=== PATIENT | male | born 1960 | race Caucasian/White ===

== ENCOUNTER 2017-10-08 01:51 | Inpatient (IN) | payer SELFPAY ==
[~2017-10-08] VITALS: Ht 172.7 cm; Wt 75.4 kg
[2017-10-08] VITALS (13 sets, daily range): BP systolic 119–165; BP diastolic 59–94; PULSE 70–108; RESP 17–24; TEMP 98–100.5; O2SAT 93–98
[~2017-10-08 01:51] MED LIST: CHLO25CA PO; LORTA5 PO; MEDR4PAK PO; THIA100T PO; TRAM50TA PO
[2017-10-08] MEDS ORDERED: PANTOPRAZOLE INJ 80 MG in SODIUM CHLORIDE 0.9% INJ 100 ML IV SCH (02:50)
[2017-10-08] MEDS ORDERED: SODIUM CHLOR 0.9% 1000 ML INJ 1,000 ML IV SCH (02:50)
[2017-10-08] MEDS ORDERED: PANTOPRAZOLE INJ 80 MG in SODIUM CHLORIDE 0.9% INJ 35 ML IV ONE (02:50)
--- NOTE | 2017-10-08 02:55 | PD ---
HPI Chief Complaint: Abdominal Pain Time Seen by Provider: 02:50 Travel History International Travel<30 days: No Contact w/Intl Traveler<30days: No Traveled to known affect area: No History of Present Illness HPI 57-year-old male presents to the emergency department complaining of generalized weakness 2 weeks with vomiting blood and black tarry stools 3 days. Patient is also noted blood in his urine. Patient admits to daily alcohol use and states he did drink 2 beers today. Patient also complains of abdominal pain abdominal distention. Patient denies any chronic medical conditions and takes no prescription medications. Patient denies NSAID use. The patient rates his pain 8/10 in intensity. [facility] Past Medical History Narrative Medical Hypertension tonsillectomy tobacco use alcohol use; nursing notes reviewed Medical History: Denies Significant Hx Cardiovascular Problems: Yes (borderline htn) Diminished Hearing: Yes Hypertension: Yes (borderline) Tetanus Vaccination: Unknown Influenza Vaccination: No Past Surgical History Tonsillectomy: Yes Social History Alcohol Use: Yes (daily) Tobacco Use: Yes Substance Use: No Allergies-Medications (Allergen,Severity, Reaction): Coded Allergies: No Known Allergies (Unverified Allergy, Unknown, 10/08/17) Reported Meds & Prescriptions Reported Meds & Active Scripts Active No Active Prescriptions or Reported Medications Review of Systems Except as stated in HPI: all other systems reviewed are Neg General / Constitutional: No: Fever, Chills HENT: No: Congestion, Nosebleed, Gingival Bleeding Cardiovascular: No: Chest Pain or Discomfort Respiratory: No: Shortness of Breath Gastrointestinal: Positive: Nausea, Vomiting, Abdominal Pain, Hematemesis, Hematochezia, No: Loss of Appetite Genitourinary: No: Dysuria Musculoskeletal: No: Myalgias, Arthralgias Skin: No Rash Neurologic: No: Weakness Psychiatric: No: Anxiety Hematologic/Lymphatic: No: Lymph Node Enlargement Physical Exam Narrative GENERAL: Well-developed well-nourished disheveled ill-appearing male in no acute respiratory distress SKIN: Warm and dry. HEAD: Normocephalic. EYES: No scleral icterus. No injection or drainage. NECK: Supple, trachea midline. No JVD or lymphadenopathy. CARDIOVASCULAR: Regular rate and rhythm without murmurs, gallops, or rubs. RESPIRATORY: Breath sounds equal bilaterally. No accessory muscle use. GASTROINTESTINAL: Abdomen soft, non-tender, nondistended. Rectal exam: Normal sphincter tone black tarry stool briskly Hemoccult positive MUSCULOSKELETAL: No cyanosis, or edema. BACK: Nontender without obvious deformity. No CVA tenderness. Data Data Last Documented VS Vital Signs Date Time Temp Pulse Resp B/P (MAP) Pulse Ox O2 Delivery O2 Flow Rate FiO2 10/08/17 04:18 85 18 119/59 (79) 97 Room Air 10/08/17 02:00 98.4 Orders Orders Complete Blood Count With Diff (10/08/17 02:50) Comprehensive Metabolic Panel (10/08/17 02:50) Lipase (10/08/17 02:50) Ammonia (10/08/17 02:50) Prothrombin Time / Inr (Pt) (10/08/17 02:50) Act Partial Throm Time (Ptt) (10/08/17 02:50) Alcohol (Ethanol) (10/08/17 02:50) Urinalysis - C+S If Indicated (10/08/17 02:50) Type And Screen (10/08/17 02:50) Chest, Single Ap (10/08/17 02:50) Ecg Monitoring (10/08/17 02:50) Iv Access Insert/Monitor (10/08/17 02:50) Oximetry (10/08/17 02:50) Ondansetron Inj (Zofran Inj) (10/08/17 03:00) Sodium Chlor 0.9% 1000 Ml Inj (Ns 1000 M (10/08/17 02:50) Sodium Chloride 0.9% Flush (Ns Flush) (10/08/17 03:00) Sodium Chloride 0.9... W/Pantoprazole In (10/08/17 02:50) Sodium Chloride 0.9... W/Pantoprazole In (10/08/17 02:50) Alcohol Withdrawal Asmt-Ciwa ONCE (10/08/17 02:50) Flumazenil Inj (Romazicon Inj) (10/08/17 03:00) Lorazepam (Ativan) (10/08/17 03:00) Lorazepam Inj (Ativan Inj) (10/08/17 03:00) Lorazepam (Ativan) (10/08/17 03:00) Lorazepam Inj (Ativan Inj) (10/08/17 03:00) Lorazepam Inj (Ativan Inj) (10/08/17 03:00) Lorazepam Inj (Ativan Inj) (10/08/17 03:00) Magnesium (Mg) (10/08/17 02:50) Thiamine Inj (Thiamine Inj) (10/08/17 03:00) Lactulose Liq (Lactulose Liq) (10/08/17 04:00) Ct Abd/Pel W Iv Contrast(Rout) (10/08/17 ) Admit Order (Ed Use Only) (10/08/17 ) Manager Clinical Research / Telemetry [email or web address] (10/08/17 04:15) Diet Npo (10/08/17 Breakfast) Activity Bed Rest (10/08/17 04:15) Notify Dr: Other (10/08/17 04:15) Consult Gastroenterology (10/08/17 ) Labs Laboratory Tests Test 10/08/17 03:05 White Blood Count 4.1 TH/MM3 Red Blood Count 3.25 MIL/MM3 Hemoglobin 10.2 GM/DL Hematocrit 28.9 % Mean Corpuscular Volume 88.9 FL Mean Corpuscular Hemoglobin 31.3 PG Mean Corpuscular Hemoglobin Concent 35.3 % Red Cell Distribution Width 15.7 % Platelet Count 68 TH/MM3 Mean Platelet Volume 8.0 FL Neutrophils (%) (Auto) 69.7 % Lymphocytes (%) (Auto) 16.4 % Monocytes (%) (Auto) 12.6 % Eosinophils (%) (Auto) 0.3 % Basophils (%) (Auto) 1.0 % Neutrophils # (Auto) 2.9 TH/MM3 Lymphocytes # (Auto) 0.7 TH/MM3 Monocytes # (Auto) 0.5 TH/MM3 Eosinophils # (Auto) 0.0 TH/MM3 Basophils # (Auto) 0.0 TH/MM3 CBC Comment AUTO DIFF Differential Comment AUTO DIFF CONFIRMED Platelet Estimate LOW Platelet Morphology Comment NORMAL Prothrombin Time 13.3 SEC Prothromb Time International Ratio 1.3 RATIO Activated Partial Thromboplast Time 25.9 SEC Blood Urea Nitrogen 24 MG/DL Creatinine 0.86 MG/DL Random Glucose 106 MG/DL Total Protein 7.4 GM/DL Albumin 2.7 GM/DL Calcium Level 7.9 MG/DL Magnesium Level 1.7 MG/DL Alkaline Phosphatase 97 U/L Aspartate Amino Transf (AST/SGOT) 154 U/L Alanine Aminotransferase (ALT/SGPT) 90 U/L Total Bilirubin 1.3 MG/DL Sodium Level 138 MEQ/L Potassium Level 4.4 MEQ/L Chloride Level 102 MEQ/L Carbon Dioxide Level 25.9 MEQ/L Anion Gap 10 MEQ/L Estimat Glomerular Filtration Rate 91 ML/MIN Ammonia 67 MCMOL/L Lipase 402 U/L Ethyl Alcohol Level 26 MG/DL MDM Medical Decision Making Medical Screen Exam Complete: Yes Emergency Medical Condition: Yes Medical Record Reviewed: Yes Interpretation(s) CT abd/pel: CONCLUSION: 1. No acute finding is identified to explain the abdominal pain or other clinical symptoms. 2. Hepatomegaly with possible steatosis and cirrhosis. 3. Moderate atherosclerotic disease. Papito Elizalde MD on October 08, 2017 at 4:56 Board Certified Radiologist. This report was verified electronically. Last Impressions Chest X-Ray 10/08/17 0250 Signed Impressions: Service Date/Time: October 03:00 - CONCLUSION: No acute cardiopulmonary abnormality is identified. Papito Elizalde MD CBC & BMP Diagram 10/08/17 03:05 Total Protein 7.4, Albumin 2.7 L, Calcium Level 7.9 L, Magnesium Level 1.7, Alkaline Phosphatase 97, Aspartate Amino Transf (AST/SGOT) 154 H, Alanine Aminotransferase (ALT/SGPT) 90 H, Total Bilirubin 1.3 H Vital Signs Date Time Temp Pulse Resp B/P (MAP) Pulse Ox O2 Delivery O2 Flow Rate FiO2 10/08/17 02:53 95 Room Air 10/08/17 02:00 98.4 89 18 143/71 (95) 96 Differential Diagnosis GI bleed, anemia, alcohol abuse, alcohol gastritis, peptic ulcer disease, esophageal varices, electrolyte disturbance, sepsis, arrhythmia, pancreatitis Narrative Course Patient placed on cardiac surgeon IV access obtained specimens collected and sent for resulting patient administered Protonix bolus and infusion HemaPrompt Point of Care Internal Pos. & Neg. Controls: Passed Fecal Specimen Occult Blood: Positive Physician Communication Physician Communication discussed with Dr Mir; discussed with Dr Burr GI Diagnosis Primary Impression: GI bleed Additional Impressions: Alcohol use Anemia Admitting Information Admitting Physician Requests: Admit Scripts No Active Prescriptions or Reported Meds Shell Cardenas MD Oct 08, 2017 02:55
[2017-10-08] MEDS ORDERED: LORazepam 1 MG TAB PO PRN ×2 (03:00→04:45)
[2017-10-08] MEDS ORDERED: THIAMINE INJ 100 MG in SODIUM CHLORIDE 0.9% INJ 100 ML IV ONE (03:00)
[2017-10-08] MEDS ORDERED: FLUMAZENIL 0.5 MG/5 ML VIAL IV PUSH PRN ×2 (03:00→04:45)
[2017-10-08] MEDS ORDERED: ONDANSETRON HCL 4 MG/2 ML VIAL IVP ONE (03:00)
[2017-10-08] MEDS ORDERED: SODIUM CHLORIDE 0.9% FLUSH 10 ML FLUSH IVF PRN (03:00)
[2017-10-08] MEDS ORDERED: LORazepam 2 MG/ML VIAL IV PUSH PRN ×7 (03:00→04:45)
[2017-10-08] MEDS ORDERED: LORazepam 2 MG TAB PO PRN ×2 (03:00→04:45)
[2017-10-08 03:22] LABS: AUTOMATED NEUTROPHIL # 2.9 TH/MM3 (1.8-7.7); EOSINOPHIL % 0.3 % (0.0-4.0); HEMATOCRIT 28.9 % (39.0-51.0); HEMOGLOBIN 10.2 GM/DL (13.0-17.0); LYMPH % 16.4 % (9.0-44.0); LYMPHOCYTE # 0.7 TH/MM3 (1.0-4.8); MEAN CELL VOLUME 88.9 FL (80.0-100.0); MEAN CORPUSCULAR HEMOGLOBIN 31.3 PG (27.0-34.0); MEAN CORPUSCULAR HGB CONC 35.3 % (32.0-36.0); MONO % 12.6 % (0.0-8.0); MONOCYTE # 0.5 TH/MM3 (0-0.9); NEUT % 69.7 % (16.0-70.0); PLATELET COUNT 68 TH/MM3 (150-450); RED BLOOD COUNT 3.25 MIL/MM3 (4.50-5.90); RED CELL DISTRIBUTION WIDTH 15.7 % (11.6-17.2); WHITE BLOOD COUNT 4.1 TH/MM3 (4.0-11.0)
--- NOTE | 2017-10-08 03:26 | RADRPT ---
EXAM DATE/TIME: 10/08/2017 03:00 [facility] COMPARISON: No previous studies available for comparison. INDICATIONS : Short of breath. MEDICAL HISTORY : None. SURGICAL HISTORY : None. ENCOUNTER: Initial ACUITY: 1 day PAIN SCORE: 0/10 LOCATION: Bilateral chest FINDINGS: Portable AP view of the chest demonstrates a normal-sized cardiac silhouette. No effusion, consolidat ion, or pneumothorax is visualized. The bones and soft tissues demonstrate no acute abnormality. Ther e are degenerative changes of the lumbar spine and at the glenohumeral joints. CONCLUSION: No acute cardiopulmonary abnormality is identified. Papito Elizalde MD on October 08, 2017 at 3:24 Board Certified Radiologist. This report was verified electronically.
[2017-10-08 03:29] LABS: INTERNATIONAL NORMALIZED RATIO 1.3 RATIO; PROTHROMBIN TIME - PATIENT 13.3 SEC (9.8-11.6)
[2017-10-08 03:39] LABS: ALBUMIN 2.7 GM/DL (3.4-5.0); AST (GOT) 154 U/L (15-37); BICARBONATE 25.9 MEQ/L (21.0-32.0); BLOOD UREA NITROGEN 24 MG/DL (7-18); CALCIUM 7.9 MG/DL (8.5-10.1); CHLORIDE 102 MEQ/L (98-107); CREATININE 0.86 MG/DL (0.60-1.30); GLOMERULAR FILTRATION RATE 91 ML/MIN (>89); GLUCOSE,RANDOM 106 MG/DL (74-106); MAGNESIUM 1.7 MG/DL (1.5-2.5); SODIUM (NA) 138 MEQ/L (136-145)
[2017-10-08 03:43] LABS: ALKALINE PHOSPHATASE 97 U/L (45-117); ALT (GPT) 90 U/L (12-78); TOTAL BILIRUBIN ADULT 1.3 MG/DL (0.2-1.0); TOTAL PROTEIN 7.4 GM/DL (6.4-8.2)
[2017-10-08] MEDS ORDERED: LACTULOSE SYRUP 20 GM/30 ML CUP PO ONE (04:00)
[2017-10-08] MEDS ORDERED: SODIUM CHLOR 0.9% 250 ML INJ 250 ML IV ONE (04:45)
[2017-10-08] MEDS ORDERED: SODIUM CHLORIDE 0.9% FLUSH 10 ML FLUSH IV FLUSH PRN (04:45)
[2017-10-08] MEDS ORDERED: IOHEXOL 350 MG/ML 10 ML VIAL (for RAD DIAG) IVCONTRAST ONE (04:48)
--- NOTE | 2017-10-08 05:03 | RADRPT ---
EXAM DATE/TIME: 10/08/2017 04:48 [facility] COMPARISON: No previous studies available for comparison. INDICATIONS : Abdomen pain; blood in stool, hematuria, hemoptysis. IV CONTRAST: 100 cc Omnipaque 350 (iohexol) IV ORAL CONTRAST: No oral contrast ingested. RADIATION DOSE: 6.57 CTDIvol (mGy) MEDICAL HISTORY : Hypertension. SURGICAL HISTORY : None. ENCOUNTER: Initial ACUITY: 1 day PAIN SCALE: 5/10 LOCATION: Bilateral abdomen TECHNIQUE: Volumetric scanning of the abdomen and pelvis was performed. Using automated exposure control and ad justment of the mA and/or kV according to patient size, radiation dose was kept as low as reasonably achievable to obtain optimal diagnostic quality images. DICOM format image data is available electro nically for review and comparison. FINDINGS: LOWER LUNGS: The visualized lower lungs are clear. LIVER: The liver measures 20.1 cm in length and demonstrates mild decrease density with possible nodular con tour. Portal vein is patent. No focal enhancing lesion is seen. There is no dilation of the biliary tree. No calcified gallstones. SPLEEN: Normal size without lesion. PANCREAS: Within normal limits. KIDNEYS: Normal in size and shape. There is no mass, stone or hydronephrosis. ADRENAL GLANDS: Within normal limits. VASCULAR: There is no aortic aneurysm. There is moderate atherosclerotic disease. BOWEL/MESENTERY: The stomach, small bowel, and colon demonstrate no acute abnormality. There is no free intraperitone al air or fluid. ABDOMINAL WALL: Within normal limits. RETROPERITONEUM: There is no lymphadenopathy. BLADDER: No wall thickening or mass. REPRODUCTIVE: Within normal limits. INGUINAL: There is no lymphadenopathy or hernia. MUSCULOSKELETAL: There are degenerative changes of the lumbar spine. No acute osseous abnormality is seen. CONCLUSION: 1. No acute finding is identified to explain the abdominal pain or other clinical symptoms. 2. Hepatomegaly with possible steatosis and cirrhosis. 3. Moderate atherosclerotic disease. Papito Elizalde MD on October 08, 2017 at 4:56 Board Certified Radiologist. This report was verified electronically.
[2017-10-08] MEDS: SODIUM CHLOR 0.9% 1000 ML INJ 1,000 ML IV SCH ×2 (05:22→14:45)
[2017-10-08 05:33] LABS: HEMOGLOBIN 9.3 GM/DL (13.0-17.0)
--- NOTE | 2017-10-08 05:37 | HHI.HP ---
[facility] No Primary Care Physician Admission Diagnosis upper GI bleed w/anemia; alcohol hepatitis/gastritis Diagnoses: Travel History International Travel<30 Days: No Contact w/Intl Traveler <30 Da: No Traveled to Known Affected Are: No History of Present Illness 57-year-old male with a past medical history significant for alcohol abuse presents to the emergency department for evaluation of bloody emesis, bloody stools and weakness. The patient reports this has been going on for several days. He drinks daily and states that he had 2 beers earlier today. He is lethargic on exam but rouses to voice. Denies CP/SOB. No nausea/vomiting/ diarrhea. No abdominal pain. Review of Systems Except as stated in HPI: all other systems reviewed are Neg Past Family Social History Past Medical History History of alcohol abuse Past Surgical History None Reported Medications Reported Meds & Active Scripts Active No Active Prescriptions or Reported Medications Allergies: Coded Allergies: No Known Allergies (Unverified Allergy, Unknown, 10/08/17) Family History Both parents with both diabetes mellitus and coronary artery disease Social History Notes proximally one pack per day. Drinks approximately 4 - 16 ounce cans of beer daily. Denies illicit drugs. Physical Exam Vital Signs Vital Signs Date Time Temp Pulse Resp B/P (MAP) Pulse Ox O2 Delivery O2 Flow Rate FiO2 10/08/17 04:18 85 18 119/59 (79) 97 Room Air 10/08/17 02:53 95 Room Air 10/08/17 02:00 98.4 89 18 143/71 (95) 96 Physical Exam GENERAL: Disheveled, male lying in bed SKIN: No rashes, ecchymoses or lesions. Cool and dry. HEAD: Atraumatic. Normocephalic. No temporal or scalp tenderness. EYES: Pupils equal round and reactive. Extraocular motions intact. No scleral icterus. No injection or drainage. ENT: Nose without bleeding, purulent drainage or septal hematoma. Throat without erythema, tonsillar hypertrophy or exudate. Uvula midline. Airway patent. NECK: Trachea midline. No JVD or lymphadenopathy. Supple, nontender, no meningeal signs. CARDIOVASCULAR: Regular rate and rhythm without murmurs, gallops, or rubs. RESPIRATORY: Clear to auscultation. Breath sounds equal bilaterally. No wheezes , rales, or rhonchi. GASTROINTESTINAL: Abdomen soft, non-tender, nondistended. No hepato-splenomegaly , or palpable masses. No guarding. MUSCULOSKELETAL: Extremities without clubbing, cyanosis, or edema. No joint tenderness, effusion, or edema noted. No calf tenderness. NEUROLOGICAL: Lethargic. Arouses to voice. Laboratory Laboratory Tests Test 10/08/17 03:05 White Blood Count 4.1 Red Blood Count 3.25 Hemoglobin 10.2 Hematocrit 28.9 Mean Corpuscular Volume 88.9 Mean Corpuscular Hemoglobin 31.3 Mean Corpuscular Hemoglobin Concent 35.3 Red Cell Distribution Width 15.7 Platelet Count 68 Mean Platelet Volume 8.0 Neutrophils (%) (Auto) 69.7 Lymphocytes (%) (Auto) 16.4 Monocytes (%) (Auto) 12.6 Eosinophils (%) (Auto) 0.3 Basophils (%) (Auto) 1.0 Neutrophils # (Auto) 2.9 Lymphocytes # (Auto) 0.7 Monocytes # (Auto) 0.5 Eosinophils # (Auto) 0.0 Basophils # (Auto) 0.0 CBC Comment AUTO DIFF Differential Comment AUTO DIFF CONFIRMED Platelet Estimate LOW Platelet Morphology Comment NORMAL Prothrombin Time 13.3 Prothromb Time International Ratio 1.3 Activated Partial Thromboplast Time 25.9 Blood Urea Nitrogen 24 Creatinine 0.86 Random Glucose 106 Total Protein 7.4 Albumin 2.7 Calcium Level 7.9 Magnesium Level 1.7 Alkaline Phosphatase 97 Aspartate Amino Transf (AST/SGOT) 154 Alanine Aminotransferase (ALT/SGPT) 90 Total Bilirubin 1.3 Sodium Level 138 Potassium Level 4.4 Chloride Level 102 Carbon Dioxide Level 25.9 Anion Gap 10 Estimat Glomerular Filtration Rate 91 Ammonia 67 Lipase 402 Ethyl Alcohol Level 26 Result Diagram: 10/08/1730410/08/17304 Caprini VTE Risk Assessment Caprini VTE Risk Assessment: No/Low Risk (score <= 1) Caprini Risk Assessment Model Point Value = 1 Point Value = 2 Point Value = 3 Point Value = 5 Age 41-60 Minor surgery BMI > 25 kg/m2 Swollen legs Varicose veins or History of unexplained or recurrent spontaneous Oral contraceptives or hormone replacement Sepsis (< 1 month) Serious lung disease, including pneumonia (< 1 month) Abnormal pulmonary function Acute myocardial infarction Congestive heart failure (< 1 month) History of inflammatory bowel disease Medical patient at bed rest Age 61-74 Arthroscopic surgery Major open surgery (> 45 min) Laparoscopic surgery (> 45 min) Malignancy Confined to bed (> 72 hours) Immobilizing plaster cast Central venous access Age >= 75 History of VTE Family history of VTE Factor V Leiden Prothrombin [id number] Lupus anticoagulant Anticardiolipin antibodies Elevated serum homocysteine Heparin-induced thrombocytopenia Other congenital or acquired thrombophilia Stroke (< 1 month) Elective arthroplasty Hip, pelvis, or leg fracture Acute spinal cord injury (< 1 month) Prophylaxis Regimen Total Risk Factor Score Risk Level Prophylaxis Regimen 0-1 Low Early ambulation 2 Moderate Order ONE of the following: *Sequential Compression Device (SCD) *Heparin 5000 units SQ BID 3-4 Higher Order ONE of the following medications: *Heparin 5000 units SQ TID *Enoxaparin/Lovenox 40 mg SQ daily (WT < 150 kg, CrCl > 30 mL/min) *Enoxaparin/Lovenox 30 mg SQ daily (WT < 150 kg, CrCl > 10-29 mL/min) *Enoxaparin/Lovenox 30 mg SQ BID (WT < 150 kg, CrCl > 30 mL/min) AND/OR *Sequential Compression Device (SCD) 5 or more Highest Order ONE of the following medications: *Heparin 5000 units SQ TID (Preferred with Epidurals) *Enoxaparin/Lovenox 40 mg SQ daily (WT < 150 kg, CrCl > 30 mL/min) *Enoxaparin/Lovenox 30 mg SQ daily (WT < 150 kg, CrCl > 10-29 mL/min) *Enoxaparin/Lovenox 30 mg SQ BID (WT < 150 kg, CrCl > 30 mL/min) AND *Sequential Compression Device (SCD) Assessment and Plan Assessment and Plan Assessment/plan: 1. GI bleed Patient reports hematemesis and is Hemoccult positive with grossly black tarry stools on rectal exam Hemoglobin 10.2, baseline 14.6 Serial H&H Protonix drip Nothing by mouth Gastroenterology consulted, appreciate recommendations 2. Hyperammonemia Ammonia 67 Rifaximin 3. Alcohol abuse Thiamine/folate/multivitamins [facility] protocol Monitor for signs of withdrawal FEN NPO Electrolytes: monitor and replete prn Holding pharmacologic anticoagulation for GI bleed Physician Certification 2 Midnight Certification Type: Admission for Inpatient Services Order for Inpatient Services The services are ordered in accordance with Medicare regulations or non- Medicare payer requirements, as applicable. In the case of services not specified as inpatient-only, they are appropriately provided as inpatient services in accordance with the 2-midnight benchmark. Estimated LOS (days): 2 2 days is the estimated time the patient will need to remain in the hospital, assuming treatment plan goals are met and no additional complications. Post-Hospital Plan: Not yet determined Odalys Mir MD Oct 08, 2017 05:37
[2017-10-08] MEDS: THIAMINE INJ 100 MG in SODIUM CHLORIDE 0.9% INJ 100 ML IV SCH (05:57)
[2017-10-08] MEDS: LORazepam 2 MG/ML VIAL IV PUSH PRN ×2 (06:27→22:16)
[2017-10-08] MEDS: MULTIVITAMIN INJ 10 ML, FOLIC ACID INJ 1 MG in SODIUM CHLORID 0.9% 500 ML INJ 500 ML IV SCH (06:39)
[2017-10-08] MEDS: RIFAXIMIN 550 MG TAB PO SCH ×2 (09:00→22:15)
[2017-10-08] MEDS ORDERED: PANTOPRAZOLE SODIUM 40 MG VIAL IV PUSH SCH (09:00)
[2017-10-08] MEDS: SODIUM CHLORIDE 0.9% FLUSH 10 ML FLUSH IV FLUSH SCH ×2 (09:00→22:16)
--- NOTE | 2017-10-08 11:20 | PD.CONS ---
HPI History of Present Illness This is a 57 year old male with hx etoh abuse who presented to ER for hematemesis, blood in stool and blood in urine. Onset yesterday. Vomit was projectile. Admits epigastric pain. Admits black tarry stool as well. Denies prior hx GIB, gastric ulcers. "I'm sure my liver is pickled." Not on blood thinners. He uses 2 x pkgs Goody powder daily. ADmits drinking 4 beers nightly. Never had EGD or colonoscopy. [facility], [facility] Past Medical History History of alcohol abuse Past Surgical History none Coded Allergies: No Known Allergies (Unverified Allergy, Unknown, 10/08/17) Family History Both parents with both diabetes mellitus and coronary artery disease Social History Notes proximally one pack per day. Drinks approximately 4 - 16 ounce cans of beer daily. Denies illicit drugs. Review of Systems Constitutional: DENIES: Fever Endocrine: DENIES: Polydipsia Eyes: DENIES: Blurred vision Ears, nose, mouth, throat: DENIES: Hearing loss Respiratory: DENIES: Cough Cardiovascular: DENIES: Chest pain Gastrointestinal: COMPLAINS OF: Abdominal pain, DENIES: Black stools, Bloody stools, Nausea, Vomiting, Hematemesis Genitourinary: COMPLAINS OF: Hematuria Musculoskeletal: DENIES: Muscle aches Integumentary: DENIES: Abnormal pigmentation Hematologic/lymphatic: DENIES: Bruising Immunologic/allergic: DENIES: Eczema Neurologic: DENIES: Abnormal gait Psychiatric: DENIES: Confusion GI Exam Vitals I&O Vital Signs Date Time Temp Pulse Resp B/P (MAP) Pulse Ox O2 Delivery O2 Flow Rate FiO2 10/08/17 07:00 88 19 140/71 (94) 93 Room Air 10/08/17 06:27 98.0 78 18 135/63 (87) 98 Room Air 10/08/17 04:18 85 18 119/59 (79) 97 Room Air 10/08/17 02:53 95 Room Air 10/08/17 02:00 98.4 89 18 143/71 (95) 96 I/O 10/07/17 10/07/17 10/07/17 10/08/17 10/08/17 10/08/17 07:00 15:00 23:00 07:00 15:00 23:00 Intake Total 651 ml Output Total 200 ml Balance 451 ml Intake IV Total 651 ml Output Stool Total 200 ml # Bowel Movements 1 Imaging Last Impressions Chest X-Ray 10/08/17 0250 Signed Impressions: Service Date/Time: October 03:00 - CONCLUSION: No acute cardiopulmonary abnormality is identified. Papito Elizalde MD Abdomen/Pelvis CT 10/08/17 0000 Signed Impressions: Service Date/Time: October 04:48 - CONCLUSION: 1. No acute finding is identified to explain the abdominal pain or other clinical symptoms. 2. Hepatomegaly with possible steatosis and cirrhosis. 3. Moderate atherosclerotic disease. Papito Elizalde MD Laboratory Test 10/08/17 03:05 10/08/17 05:16 White Blood Count 4.1 TH/MM3 Red Blood Count 3.25 MIL/MM3 Hemoglobin 10.2 GM/DL 9.3 GM/DL Hematocrit 28.9 % 27.0 % Mean Corpuscular Volume 88.9 FL Mean Corpuscular Hemoglobin 31.3 PG Mean Corpuscular Hemoglobin Concent 35.3 % Red Cell Distribution Width 15.7 % Platelet Count 68 TH/MM3 Mean Platelet Volume 8.0 FL Neutrophils (%) (Auto) 69.7 % Lymphocytes (%) (Auto) 16.4 % Monocytes (%) (Auto) 12.6 % Eosinophils (%) (Auto) 0.3 % Basophils (%) (Auto) 1.0 % Neutrophils # (Auto) 2.9 TH/MM3 Lymphocytes # (Auto) 0.7 TH/MM3 Monocytes # (Auto) 0.5 TH/MM3 Eosinophils # (Auto) 0.0 TH/MM3 Basophils # (Auto) 0.0 TH/MM3 CBC Comment AUTO DIFF Differential Comment AUTO DIFF CONFIRMED Platelet Estimate LOW Platelet Morphology Comment NORMAL Prothrombin Time 13.3 SEC Prothromb Time International Ratio 1.3 RATIO Activated Partial Thromboplast Time 25.9 SEC Blood Urea Nitrogen 24 MG/DL Creatinine 0.86 MG/DL Random Glucose 106 MG/DL Total Protein 7.4 GM/DL Albumin 2.7 GM/DL Calcium Level 7.9 MG/DL Magnesium Level 1.7 MG/DL Alkaline Phosphatase 97 U/L Aspartate Amino Transf (AST/SGOT) 154 U/L Alanine Aminotransferase (ALT/SGPT) 90 U/L Total Bilirubin 1.3 MG/DL Sodium Level 138 MEQ/L Potassium Level 4.4 MEQ/L Chloride Level 102 MEQ/L Carbon Dioxide Level 25.9 MEQ/L Anion Gap 10 MEQ/L Estimat Glomerular Filtration Rate 91 ML/MIN Ammonia 67 MCMOL/L Lipase 402 U/L Ethyl Alcohol Level 26 MG/DL Physical Examination HEENT: PERRL; normocephalic; atraumatic; no jaundice. CHEST: expiratory wheezes CARDIAC: RRR ABDOMEN: Soft, nondistended, epigastric TTP; no hepatosplenomegaly; bowel sounds are present in all four quadrants. EXTREMITIES: No clubbing, cyanosis, or edema. SKIN: Normal; no rash; no jaundice. DIESEL SCOOP OPERATOR: No focal deficits; alert and oriented times three. Amrita Mauricio Oct 08, 2017 11:20
[2017-10-08 12:00] LABS: BILIRUBIN, URINE NEG (NEG); BLOOD, URINE NEG (NEG); GLUCOSE,URINE NEG (NEG); KETONE, URINE NEG (NEG); NITRITE,URINE NEG (NEG); URINE COLOR YELLOW (YELLW/STRAW); URINE LEUKOCYTE ESTERASE NEG (NEG)
[2017-10-08 12:05] LABS: HEMATOCRIT 28.2 % (39.0-51.0); HEMOGLOBIN 9.6 GM/DL (13.0-17.0)
[2017-10-08] MEDS: PANTOPRAZOLE INJ 80 MG in SODIUM CHLORIDE 0.9% INJ 100 ML IV SCH ×2 (13:31→21:00)
--- NOTE | 2017-10-08 15:08 | HHI.PR ---
Addendum to Inpatient Note Addendum Reason: Additional Documentation Additional Information Patient seen and examined GI consultation pending Keep NPO, IV PPI and Continue with current treatment Bartolome Alejandra MD Oct 08, 2017 15:08
--- NOTE | 2017-10-08 15:22 | GIPROC ---
[facility] [address] [facility]. [facility] [address], [address] EGD PROCEDURE REPORT EXAM DATE: 10/08/2017 PATIENT NAME: Papito Earl MR #: [id number] BIRTHDATE: 1960 ATTENDING: Miguel Hill MD ORDER #: [id number] COUNTY COMMISSIONER: Kristan Pendleton RN STATUS: inpatient INDICATIONS: The patient is a 57 yr old male here for an EGD due to hematemesis PROCEDURE PERFORMED: EGD w/ biopsy MEDICATIONS: None and Per Anesthesia. TOPICAL ANESTHETIC: none CONSENT: The patient understands the risks and benefits of the procedure and understands that these risks include, but are not limited to: sedation, allergic reaction, infection, perforation and/or bleeding. Alternative means of evaluation and treatment include, among others: physical exam, x-rays, and/or surgical intervention. The patient elects to proceed with this endoscopic procedure. medical equipment was checked for proper function. Hand hygiene and appropriate measures for infection prevention was taken. After the risks, benefits and alternatives of the procedure were thoroughly explained, Informed consent was verified, confirmed and timeout was successfully executed by the treatment team. The patient was anesthetized with topical anesthesia and the Pentax EG-[id number] endoscope was introduced through the mouth and advanced to the second portion of the duodenum. Retroflexion was performed and was normal The gastroscope was then slowly withdrawn and removed. ESOPHAGUS: A non-bleeding Caitlin-Ronquillo tear was found. STOMACH: There was erythematous severe gastritis in the entire examined stomach. Multiple biopsies were performed using cold forceps. Sample sent for histology. DUODENUM: A large non-bleeding non-bleeding, round, deep and clean-based ulcer was found in the duodenal bulb. ADVERSE EVENTS: There were no complications. IMPRESSIONS: 1. Caitlin-Ronquillo tear 2. There was erythematous gastritis in the entire examined stomach; multiple biopsies were performed 3. Large non-bleeding ulcer was found in the duodenal bulb 4. Retroflexion was performed and was normal RECOMMENDATIONS: 1. Await biopsy results. Biopsy results will not be ready for 7-10 days. If you don't hear from us in two weeks, call our office for biopsy results. 2. Continue PPI 3. Avoid NSAIDS PATIENT CONDITION: stable DISPOSITION: Observation REPEAT EXAM: NONE Miguel Hill MD eSigned: Miguel Hill MD 10/08/2017 3:22 PM cc: PATIENT NAME: Papito Earl MR#: [id number]
--- NOTE | 2017-10-08 23:59 | EKG ---
Date Performed: 10/08/2017 Time Performed: 14:28:00 PTAGE: 57 years EKG: Sinus rhythm NORMAL ECG PREVIOUS TRACING : 06/24/2016 11.13 Since the prior tracing, there has been no significant maravilla DOCTOR: Manuel Hudson Interpretating Date/Time 10/08/2017 23:59:02
[2017-10-09] VITALS: PULSE 80
[2017-10-09] MEDS: PANTOPRAZOLE INJ 80 MG in SODIUM CHLORIDE 0.9% INJ 100 ML IV SCH ×2 (00:17→13:08)
[2017-10-09] MEDS: SODIUM CHLOR 0.9% 1000 ML INJ 1,000 ML IV SCH ×2 (00:18→10:45)
[2017-10-09 04:00] VITALS: PULSE 82
[2017-10-09 04:12] VITALS: BP 126/76; PULSE 77; RESP 18; TEMP 98.6; O2SAT 98
[2017-10-09] MEDS: MULTIVITAMIN INJ 10 ML, FOLIC ACID INJ 1 MG in SODIUM CHLORID 0.9% 500 ML INJ 500 ML IV SCH (04:51)
[2017-10-09] MEDS: THIAMINE INJ 100 MG in SODIUM CHLORIDE 0.9% INJ 100 ML IV SCH (04:53)
[2017-10-09 07:54] LABS: AUTOMATED NEUTROPHIL # 2.2 TH/MM3 (1.8-7.7); BASOPHIL % 0.8 % (0.0-2.0); EOSINOPHIL # 0.1 TH/MM3 (0-0.4); EOSINOPHIL % 2.1 % (0.0-4.0); HEMATOCRIT 26.6 % (39.0-51.0); HEMOGLOBIN 9.2 GM/DL (13.0-17.0); LYMPH % 40.9 % (9.0-44.0); LYMPHOCYTE # 1.9 TH/MM3 (1.0-4.8); MEAN CELL VOLUME 91.9 FL (80.0-100.0); MEAN CORPUSCULAR HEMOGLOBIN 31.8 PG (27.0-34.0); MEAN CORPUSCULAR HGB CONC 34.6 % (32.0-36.0); MEAN PLATELET VOLUME 8.4 FL (7.0-11.0); MONO % 9.3 % (0.0-8.0); MONOCYTE # 0.4 TH/MM3 (0-0.9); NEUT % 46.9 % (16.0-70.0); PLATELET COUNT 53 TH/MM3 (150-450); RED BLOOD COUNT 2.89 MIL/MM3 (4.50-5.90); RED CELL DISTRIBUTION WIDTH 15.6 % (11.6-17.2); WHITE BLOOD COUNT 4.7 TH/MM3 (4.0-11.0)
[2017-10-09 08:00] LABS: ALBUMIN 2.4 GM/DL (3.4-5.0); ALT (GPT) 63 U/L (12-78); BICARBONATE 27.3 MEQ/L (21.0-32.0); BLOOD UREA NITROGEN 16 MG/DL (7-18); CALCIUM 7.6 MG/DL (8.5-10.1); CHLORIDE 105 MEQ/L (98-107); CREATININE 0.98 MG/DL (0.60-1.30); GLOMERULAR FILTRATION RATE 79 ML/MIN (>89); GLUCOSE,RANDOM 81 MG/DL (74-106); SODIUM (NA) 138 MEQ/L (136-145)
[2017-10-09 08:03] LABS: ALKALINE PHOSPHATASE 86 U/L (45-117); AST (GOT) 100 U/L (15-37); TOTAL BILIRUBIN ADULT 1.2 MG/DL (0.2-1.0); TOTAL PROTEIN 6.8 GM/DL (6.4-8.2)
[2017-10-09 08:34] VITALS: BP 144/70; PULSE 77; RESP 17; TEMP 98.7; O2SAT 98
[2017-10-09] MEDS: SODIUM CHLORIDE 0.9% FLUSH 10 ML FLUSH IV FLUSH SCH (09:00)
[2017-10-09] MEDS ORDERED: ALUMINUM/MAGNESIUM/SIMETH 30 ML CUP PO PRN (09:30)
[2017-10-09 10:52] VITALS: BP 135/68; PULSE 87; RESP 18; TEMP 98.1; O2SAT 99
[2017-10-09 12:22] VITALS: PULSE 92
[2017-10-09] MEDS: RIFAXIMIN 550 MG TAB PO SCH (13:08)
--- NOTE | 2017-10-09 13:19 | HHI.GIFU ---
Subjective Remarks Sitting up in chair alert oriented Hoping to go home Denies any further bleeding No nausea no abdominal pain, no vomiting (Pavithra Tran) Objective Vitals I&O Vital Signs Date Time Temp Pulse Resp B/P (MAP) Pulse Ox O2 Delivery O2 Flow Rate FiO2 10/09/17 10:52 98.1 87 18 135/68 (90) 99 10/09/17 08:34 98.7 77 17 144/70 (94) 98 10/09/17 08:00 Room Air 10/09/17 04:12 98.6 77 18 126/76 (93) 98 10/09/17 04:00 82 10/09/17 00:00 80 10/08/17 23:38 98.5 72 18 129/64 (85) 94 10/08/17 21:42 100.5 78 18 123/65 (84) 98 10/08/17 20:00 108 10/08/17 19:30 98 Room Air 10/08/17 18:30 99.0 70 18 154/72 (99) 96 10/08/17 17:53 10/08/17 17:30 92 18 138/80 (99) 96 Room Air 10/08/17 16:10 89 24 155/94 (114) 96 Room Air 10/08/17 15:33 97.4 88 18 156/79 (104) 97 I/O 10/08/17 10/08/17 10/08/17 10/09/17 10/09/17 10/09/17 07:00 15:00 23:00 07:00 15:00 23:00 Intake Total 651 ml 400 ml 0 ml Output Total 200 ml Balance 451 ml 400 ml 0 ml Intake Oral 0 ml IV Total 651 ml Other 400 ml Output Stool Total 200 ml # Voids 1 # Bowel Movements 1 1 Laboratory Laboratory Tests Test 10/09/17 06:25 White Blood Count 4.7 Red Blood Count 2.89 Hemoglobin 9.2 Hematocrit 26.6 Mean Corpuscular Volume 91.9 Mean Corpuscular Hemoglobin 31.8 Mean Corpuscular Hemoglobin Concent 34.6 Red Cell Distribution Width 15.6 Platelet Count 53 Mean Platelet Volume 8.4 Neutrophils (%) (Auto) 46.9 Lymphocytes (%) (Auto) 40.9 Monocytes (%) (Auto) 9.3 Eosinophils (%) (Auto) 2.1 Basophils (%) (Auto) 0.8 Neutrophils # (Auto) 2.2 Lymphocytes # (Auto) 1.9 Monocytes # (Auto) 0.4 Eosinophils # (Auto) 0.1 Basophils # (Auto) 0.0 CBC Comment AUTO DIFF Differential Comment AUTO DIFF CONFIRMED Platelet Estimate LOW Platelet Morphology Comment NORMAL Blood Urea Nitrogen 16 Creatinine 0.98 Random Glucose 81 Total Protein 6.8 Albumin 2.4 Calcium Level 7.6 Alkaline Phosphatase 86 Aspartate Amino Transf (AST/SGOT) 100 Alanine Aminotransferase (ALT/SGPT) 63 Total Bilirubin 1.2 Sodium Level 138 Potassium Level 3.9 Chloride Level 105 Carbon Dioxide Level 27.3 Anion Gap 6 Estimat Glomerular Filtration Rate 79 Imaging Last Impressions Chest X-Ray 10/08/17 0250 Signed Impressions: Service Date/Time: October 03:00 - CONCLUSION: No acute cardiopulmonary abnormality is identified. Papito Elizalde MD Abdomen/Pelvis CT 10/08/17 0000 Signed Impressions: Service Date/Time: October 04:48 - CONCLUSION: 1. No acute finding is identified to explain the abdominal pain or other clinical symptoms. 2. Hepatomegaly with possible steatosis and cirrhosis. 3. Moderate atherosclerotic disease. Papito Elizalde MD Physical Exam HEENT: Pupils round and reactive to light; normocephalic; atraumatic; NECK: Neck is supple, no pain CHEST: Chest is essentially clear no audible rhonchi CARDIAC: Regular rate and rhythm ABDOMEN: Soft, nondistended, nontender, bowel sounds are present in all four quadrants. EXTREMITIES: No edema. SKIN: Pale mild; no rash; no jaundice. SLIDE FORMING MACHINE TENDER: No focal deficits; alert and oriented times three. (Pavithra Tran) Assessment and Plan Plan Hepatomegaly with probable steatosis, cirrhosis seen on x-ray. EGD done without complications 10/08/17 Caitlin-Ronquillo tear There was erythematous gastritis in the entire examined stomach; multiple biopsies were performed Large non-bleeding ulcer was found in the duodenal bulb Retroflexion was performed and was normal Hemoglobin stable today at 9.2 Plan Await biopsy results. Biopsy results will not be ready for 7-10 days. If you don't hear from us in two weeks, call our office for biopsy results Continue PPI Avoid NSAIDS Okay to DC from a GI perspective follow up with us in the office 2-4 weeks (Pavithra Tran) Physician Comments agree with above assessment and plan. Stable from GI point of view. Please notify us for active bleeding. (Miguel Hill MD) Pavithra Tran Oct 09, 2017 13:19 Miguel Hill MD Oct 09, 2017 14:14
[2017-10-09] MEDS ORDERED: THIA100 PO (14:51)
[2017-10-09] MEDS ORDERED: PANT40TA3 PO (14:51)
[2017-10-09] MEDS ORDERED: LACT10SO PO (14:56)
--- NOTE | 2017-10-09 14:56 | HHI.DCPOC ---
Discharge Care Plan Diagnosis: (1) Hyperammonemia (2) GI bleed (3) Alcohol use (4) Gastritis (5) Duodenal ulcer (6) Caitlin-Ronquillo tear Goals to Promote Your Health * To prevent worsening of your condition and complications * To maintain your health at the optimal level Directions to Meet Your Goals Take your medications as prescribed Follow your dietary instruction Follow activity as directed Keep your appointments as scheduled Take your immunizations and boosters as scheduled If your symptoms worsen call your PCP, if no PCP go to Urgent Care Center or Emergency Room Smoking is Dangerous to Your Health. Avoid second hand smoke Call the 24-hour hour crisis hotline for domestic abuse at Thuan Bradford MD Oct 09, 2017 14:56
[2017-10-09] MEDS ORDERED: ZINC220T PO (15:01)
--- NOTE | 2017-10-09 15:01 | HHI.PR ---
Subjective Remarks Nursing denies any deterioration since last night. Patient reports that his overall symptoms have improved. Tolerating p.o. intake well. Objective Vital Signs Date Time Temp Pulse Resp B/P (MAP) Pulse Ox O2 Delivery O2 Flow Rate FiO2 10/09/17 10:52 98.1 87 18 135/68 (90) 99 10/09/17 08:34 98.7 77 17 144/70 (94) 98 10/09/17 08:00 Room Air 10/09/17 04:12 98.6 77 18 126/76 (93) 98 10/09/17 04:00 82 10/09/17 00:00 80 10/08/17 23:38 98.5 72 18 129/64 (85) 94 10/08/17 21:42 100.5 78 18 123/65 (84) 98 10/08/17 20:00 108 10/08/17 19:30 98 Room Air 10/08/17 18:30 99.0 70 18 154/72 (99) 96 10/08/17 17:53 10/08/17 17:30 92 18 138/80 (99) 96 Room Air 10/08/17 16:10 89 24 155/94 (114) 96 Room Air 10/08/17 15:33 97.4 88 18 156/79 (104) 97 I/O 10/08/17 10/08/17 10/08/17 10/09/17 10/09/17 10/09/17 07:00 15:00 23:00 07:00 15:00 23:00 Intake Total 651 ml 400 ml 0 ml Output Total 200 ml Balance 451 ml 400 ml 0 ml Intake Oral 0 ml IV Total 651 ml Other 400 ml Output Stool Total 200 ml # Voids 1 # Bowel Movements 1 1 Result Diagram: 10/09/17 0625 10/09/17 0625 Objective Remarks lying in bed, no acute distress Abdomen is soft, nontender, nondistended, A/P Assessment and Plan Patient's H&H was stable. Hemodynamic status was stable. Tolerating p.o. intake well without any further episodes of nausea vomiting or abdominal pain. Clear for discharge from GI standpoint. Patient was extensively counseled on the importance of avoiding nonsteroidal anti-inflammatory drugs as well as Tylenol. He was also counseled on the importance of cutting down on his alcohol. Patient has met maximal benefit from hospitalization is clinically stable for discharge. Thuan Bradford MD Oct 09, 2017 15:01
[2017-10-11] MEDS ORDERED: THIAMINE HCL 100 MG TAB PO SCH (09:00)
== END 2017-10-09 15:43 | disposition home or self-care (01) | DRG 370 ==
LOC: NEPC 01:51 → NEDA 04:20 → NEDH 08:26 → N04A 17:57
PROVIDERS: ADMIT Hospitalist; ATTEND Hospitalist
PROC: 0DB68ZX Excision of Stomach, Via Natural or Artificial Opening Endoscopic, Diagnostic (ICD-10-PCS; principal; 2017-10-08 15:01)
DX: K22.6 Gastro-esophageal laceration-hemorrhage syndrome (principal); K74.60 Unspecified cirrhosis of liver; I10 Essential (primary) hypertension; D50.0 Iron deficiency anemia secondary to blood loss (chronic); F10.10 Alcohol abuse, uncomplicated; K29.70 Gastritis, unspecified, without bleeding; K26.9 Duodenal ulcer, unspecified as acute or chronic, without hemorrhage or perforation; H91.90 Unspecified hearing loss, unspecified ear; Z79.82 Long term (current) use of aspirin; F17.210 Nicotine dependence, cigarettes, uncomplicated
CPT/HCPCS: 71045; 74177; 80053; 80307; 81001; 82140; 82948; 83690; 83735; 85014; 85018; 85025; 85610; 85730; 86850; 86900; 86901; 86920; 88305; 93005; 96365; 96368; 96375; C9113; J2060; J2405; J3411; J7030; J7040; Q9967

== ENCOUNTER 2018-03-23 18:54 | Observation (INO) ==
[2018-03-23] MEDS ORDERED: Sod Chloride 0.9% Inj 1,000 ML IV.SIG ONE (19:10)
--- NOTE | 2018-03-23 19:17 | ED ---
HPI General Chief complaint: Abdominal Pain Stated complaint: Poss GI Bleed Time Seen by Provider: 03/23/18 18:56 Source: patient, EMS, RN notes reviewed and old records reviewed Mode of arrival: EMS Limitations: other (illness) History of Present Illness HPI Narrative: 38-year-old male presents to the emergency department via EMS for evaluation. Patient states been vomiting bright red blood and had dark tarry stools for 3 days. He reports that he was diagnosed with GI bleed back in October. According to EMS, he was hypotensive with systolic blood pressure 66 on scene. He had a syncopal episode as well. Patient admits to drinking alcohol, 4 beers daily. He denies take any aspirin anticoagulants. He denies taking anti-inflammatories. According to EMS, he is on lactulose that he takes intermittently. EMS gave him Zofran 4 mg IV and normal saline 500 mL bolus. Blood pressure on arrival is 120/80. Patient reports lower abdominal cramping. Moderate severity. MD complaint: gross hematemesis and melena Onset (ago): day(s) (3) Pain Consistency: constant Severity: severe Relieving factors: none Exacerbating factors: none Context: history of GI bleed and alcohol abuse Associated symptoms: abdominal pain Related Data Home Medications Medication Instructions Recorded Confirmed lactulose 03/23/18 Allergies Allergy/AdvReac Type Severity Reaction Status Date / Time No Known Drug Allergies Allergy Weakness Verified 03/23/18 21:49 No Known Allergies Allergy Mild Weakness Uncoded 03/23/18 21:49 Review of Systems ROS: all other systems reviewed are negative PMFSH Medical History Medical History EtOH dependence (Acute) Social History Social History Substance History: Past History Second Hand Smoke Exposure: Yes Smoking Status: Current every day smoker Tobacco Type: Cigarettes How Often Do You Have a Drink Containing Alcohol: 4 or more times a week Recent Travel in [facility] within the Last 8 Weeks: No Recent Out of Country Travel within the Last 8 Weeks: No Immunization History Tetanus Immunization: Never Vaccinated Hx Influenza Vaccine This Season: No Exam Narrative Exam Narrative: GENERAL: Well-nourished, well-developed male patient, afebrile SKIN: Focused skin assessment warm/dry. HEAD: Normocephalic. Atraumatic EYES: No scleral icterus. No injection or drainage. NECK: Supple, trachea midline. No JVD or lymphadenopathy. CARDIOVASCULAR: Regular rate and rhythm without murmurs, gallops, or rubs. RESPIRATORY: Breath sounds equal bilaterally. No accessory muscle use. Lungs sounds are clear to auscultation GASTROINTESTINAL: Abdomen soft and nondistended. MUSCULOSKELETAL: No cyanosis, or edema. BACK: Nontender without obvious deformity. No CVA tenderness. RECTAL EXAM: No masses or tenderness, stool is dark and tarry. Hemoccult was positive. This exam was done with RN at bedside Procedures Hemaprompt Stool Procedural Steps Taken: specimen placed in appropriate test area, developer placed on specimen and control areas and controls appropriately positive and negative Hemaprompt Stool Result: positive Course Initial Documented Vital Signs Temperature 98.1 F 03/23/18 18:58 Pulse Rate 105 H 03/23/18 18:58 Respiratory Rate 20 03/23/18 18:58 Blood Pressure 132/88 03/23/18 18:58 Pulse Oximetry 98 03/23/18 18:58 Last Documented Vital Signs Temperature 98.1 F 03/23/18 18:58 Pulse Rate 97 H 03/23/18 20:26 Respiratory Rate 18 03/23/18 20:26 Blood Pressure 136/75 03/23/18 20:26 Pulse Oximetry 98 03/23/18 20:26 Medical Decision Making CLAY Attestation CLAY supervised visit: Yes Attestation: I, Dr. Barnett, have reviewed the advance practice practitioner's documentation and am in agreement, met with the patient face to face, made the diagnosis, and the medical decision making was done by me. The patient was initially evaluated by Rhonda, the DOOR CUTTER. Please see their complete history and physical. *My assessment and Findings: The patient presents with History of recurrent GI bleed that he reports began on Thursday. He reports that today he has had nausea and vomiting of blood 4 times. He reports that today he has also had 4 episodes of diarrhea that were melanotic. 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 He reports that he is drinking 4 beers per day. He reports that he does not have a primary care physician yet, however he has scheduled with a new physician through [facility]. The patient arrives by EVAC. The patient reportedly had an initial blood pressure of 60/40 with a syncopal event. The patient had IV access obtained prior to arrival was given normal saline 704 mg of Zofran IV. The patient's blood pressure on arrival is 132 systolic. The patient's blood sugar was noted to be 118 prior to arrival. The patient's examination is remarkable for a slight abdominal distention without any focal tenderness. The patient has a sinus tachycardia with a rate in the low 100s without any pulse deficits to the extremities. During the course of the patient's emergency department visit, the patient's history, examination, and differential diagnosis were reviewed with the patient. The patient was placed on a child monitor with oximetry and frequent blood pressure monitoring. The patient had [-] IV access obtained and blood work sent for analysis. The patient was initially provided Protonix as a bolus and then a drip, normal saline IV fluids, octreotide as a bolus and a drip. The patient's laboratory studies were reviewed and remarkable for a white count of 9.1, platelets are 99, neutrophil percent is 61.9 with a monocytosis of 12.1 , hemoglobin initially 11.2, PT is 13.7, PTT 25, chemistry is remarkable for a troponin I of less than 0.02, total protein 8.4, total bilirubin 1.6, glucose 131, GFR 54, creatinine 1.36, CO2 19.5, calcium 8, BUN 32, AST 106, ammonia level is elevated at 56, albumin 2.6. Radiology studies were reviewed and remarkable for A chest x-ray that reveals a mildly displaced fracture the posterior lateral left seventh rib, that appears to be acute, mild atelectasis left lung base, no evidence of pneumothorax. The patient's results were discussed with the patient, including the plan of care. I explained that further testing and/ or monitoring is indicated based on the patient's history, examination, and/ or laboratory findings. Therefore, I recommended admission for additional evaluation. The patient expressed understanding and was agreeable with this plan. The patient was admitted to the hospital in guarded condition. [facility] Narrative Medical decision making narrative: 38-year-old male presents to the emergency department via EMS for evaluation of hematemesis and dark tarry stools for 3 days. Patient was hypotensive on scene and had syncopal episode. IV access established. EKG, CBC, CMP, lipase, ammonia level, Ck, troponin, alcohol level , PTT, PT/INR, type and screen are ordered and pending. Chest x-ray is ordered and pending. Patient is given normal saline 1 L IV bolus, Protonix bolus and drip. EKG shows sinus tachycardia, HR 106. CBC shows hemoglobin 11.2, hematocrit 34.9 , platelets 99. CMP shows bicarb 19.5, BUN 32, creatinine 1.36, hyperglycemia 131, AST 106, bilirubin 1.6. Lipase is 195. Ammonia is 56. Alcohol level is less than 3. CK is 142. Troponin is less than 0.02. PTT is 25.0. PT/INR is 13.7/1.4. Chest x-ray shows mildly displaced fracture of the posterior lateral seventh rib, acute. Patient denies any recent trauma. He does admit to heaving which could have possibly caused his rib fracture. He denies chest pain. CT abdomen/pelvis shows shows no acute findings Patient remained stable in the emergency department. Dr. Izaguirre accepted admission. Medical Screen Exam Complete: Yes Emergency Medical Condition: Yes Differential Diagnosis Differential Diagnosis: upper GI bleed vs. caitlin domingo tear vs. lower GI bleed vs. varices vs. anemia Medical Records Medical records reviewed: Yes I reviewed the patient's medical records. Patient had EGD done in October which showed Caitlin-Domingo tear, There was erythematous gastritis in the entire examined stomach; multiple biopsies were performed, large non-bleeding ulcer was found in the duodenal bulb Lab Data Lab results reviewed: Yes I reviewed the patient's lab results. Result diagrams: 03/23/18 19:20 03/23/18 19:20 Lab Results 03/23/18 03/23/18 03/23/18 Range/Units 19:20 19:20 19:20 WBC 9.1 (4.0-11.0) th/mm3 RBC 4.05 L (4.50-5.90) mil/mm3 Hgb 11.2 L (13.0-17.0) gm/dL Hct 34.9 L (39.0-51.0) % MCV 86.2 (80.0-100.0) fL MCH 27.6 (27.0-34.0) pg MCHC 32.0 (32.0-36.0) % RDW 17.6 H (11.6-17.2) % Plt Count 99 L (150-450) th/mm3 MPV 8.1 (7.0-11.0) fL Prelim Diff (Auto) Slide review pending Neut % (Auto) 61.9 (16.0-70.0) % Lymph % (Auto) 24.5 (9.0-44.0) % Chilton % (Auto) 12.1 H (0.0-8.0) % Eos % (Auto) 0.7 (0.0-4.0) % Baso % (Auto) 0.8 (0.0-2.0) % Neut # (Auto) 5.6 (1.8-7.7) th/mm3 Lymph # (Auto) 2.2 (1.0-4.8) th/mm3 Chilton # (Auto) 1.1 H (0.0-0.9) th/mm3 Eos # (Auto) 0.1 (0.0-0.4) th/mm3 Baso # (Auto) 0.1 (0.0-0.2) th/mm3 WBC Differential . Diff Scan Auto diff confirmed Differential Comment . Platelet Estimate Low L (Normal) Platelet Morphology Normal (Normal) Spherocytes Occ H (None) PT 13.7 H (9.8-11.6) sec INR 1.4 Ratio APTT 25.0 (24.3-30.1) sec Sodium 137 (136-145) meq/L Potassium 4.3 (3.5-5.1) meq/L Chloride 103 (98-107) meq/L Carbon Dioxide 19.5 L (21.0-32.0) meq/L Anion Gap 15 (5-15) meq/L BUN 32 H (7-18) mg/dL Creatinine 1.36 H (0.60-1.30) mg/dL Estimated GFR 54 L (>89) mL/min Random Glucose 131 H (74-106) mg/dL Calcium 8.0 L (8.5-10.1) mg/dL Magnesium 1.7 (1.5-2.5) mg/dL Total Bilirubin 1.6 H (0.2-1.0) mg/dL AST 106 H (15-37) U/L ALT 68 (12-78) U/L Alkaline Phosphatase 105 (45-117) U/L Ammonia (11-32) mcmol/L Total Creatine Kinase (39-308) U/L Troponin I (0.02-0.05) ng/mL Total Protein 8.4 H (6.4-8.2) g/dL Albumin 2.6 L (3.4-5.0) g/dL Lipase 195 (73-393) U/L Serum Alcohol Less than 3 (0-5) mg/dL 03/23/18 03/23/18 Range/Units 19:20 19:20 WBC (4.0-11.0) th/mm3 RBC (4.50-5.90) mil/mm3 Hgb (13.0-17.0) gm/dL Hct (39.0-51.0) % MCV (80.0-100.0) fL MCH (27.0-34.0) pg MCHC (32.0-36.0) % RDW (11.6-17.2) % Plt Count (150-450) th/mm3 MPV (7.0-11.0) fL Prelim Diff (Auto) Neut % (Auto) (16.0-70.0) % Lymph % (Auto) (9.0-44.0) % Chilton % (Auto) (0.0-8.0) % Eos % (Auto) (0.0-4.0) % Baso % (Auto) (0.0-2.0) % Neut # (Auto) (1.8-7.7) th/mm3 Lymph # (Auto) (1.0-4.8) th/mm3 Chilton # (Auto) (0.0-0.9) th/mm3 Eos # (Auto) (0.0-0.4) th/mm3 Baso # (Auto) (0.0-0.2) th/mm3 WBC Differential Diff Scan Differential Comment Platelet Estimate (Normal) Platelet Morphology (Normal) Spherocytes (None) PT (9.8-11.6) sec INR Ratio APTT (24.3-30.1) sec Sodium (136-145) meq/L Potassium (3.5-5.1) meq/L Chloride (98-107) meq/L Carbon Dioxide (21.0-32.0) meq/L Anion Gap (5-15) meq/L BUN (7-18) mg/dL Creatinine (0.60-1.30) mg/dL Estimated GFR (>89) mL/min Random Glucose (74-106) mg/dL Calcium (8.5-10.1) mg/dL Magnesium (1.5-2.5) mg/dL Total Bilirubin (0.2-1.0) mg/dL AST (15-37) U/L ALT (12-78) U/L Alkaline Phosphatase (45-117) U/L Ammonia 56 H (11-32) mcmol/L Total Creatine Kinase 142 (39-308) U/L Troponin I Less than 0.02 L (0.02-0.05) ng/mL Total Protein (6.4-8.2) g/dL Albumin (3.4-5.0) g/dL Lipase (73-393) U/L Serum Alcohol (0-5) mg/dL Imaging Data Radiologist's impression: Chest X-Ray 03/23/18 19:10 CONCLUSION: Mildly displaced fracture of the posterior lateral left seventh rib, acute. Mild atelectasis left lung base. No evidence of pneumothorax. Abdomen/Pelvis CT 03/23/18 19:51 CONCLUSION: 1. No acute findings. 2. Stable hepatomegaly and mild steatosis. ECG Data Attestation: I personally reviewed and interpreted this ECG as follows: Interpretation: The patient had a EKG done on arrival that shows a sinus tachycardia rate 106, QRS duration is 97 ms, QTC [address] segment elevation. Discharge Plan Discharge Disposition Patient Disposition: 30 Still Patient Discharge Details Diagnosis: Acute GI bleeding Physicians Team ED Provider: Zayda Barnett ED Midlevel Provider: Rhonda Jimenez Primary Care Provider: Primary Care Kelly Bernal Attending Provider: Cuong Frey Status ED Status: Admitted Observation Patient
[2018-03-23] MEDS: Pantoprazole Inj 80 MG in Sodium Chlor 0.9% Inj 100 ML IV.CONT SCH (19:24)
[2018-03-23] MEDS ORDERED: Pantoprazole Inj 80 MG in Sodium Chlor 0.9% Inj 50 ML IV.SIG ONE (19:32)
[2018-03-23] MEDS ORDERED: Octreotide Inj 50 MCG/ML Vial IV.PUSH ONE (19:39)
[2018-03-23 19:46] LABS: Baso # (Auto) 0.1 th/mm3 (0.0-0.2); Baso % (Auto) 0.8 % (0.0-2.0); Eos # (Auto) 0.1 th/mm3 (0.0-0.4); Eos % (Auto) 0.7 % (0.0-4.0); Hematocrit 34.9 % (39.0-51.0); Hemoglobin 11.2 gm/dL (13.0-17.0); Lymph # (Auto) 2.2 th/mm3 (1.0-4.8); Lymph % (Auto) 24.5 % (9.0-44.0); Mean Corpuscular Hemoglobin 27.6 pg (27.0-34.0); Mean Corpuscular Volume 86.2 fL (80.0-100.0); Mean Platelet Volume 8.1 fL (7.0-11.0); Mono # (Auto) 1.1 th/mm3 (0.0-0.9); Mono % (Auto) 12.1 % (0.0-8.0); Neut # (Auto) 5.6 th/mm3 (1.8-7.7); Neut % (Auto) 61.9 % (16.0-70.0); Platelet Count 99 th/mm3 (150-450); Red Blood Count 4.05 mil/mm3 (4.50-5.90); Red Cell Distribution Width 17.6 % (11.6-17.2); White Blood Count 9.1 th/mm3 (4.0-11.0)
[2018-03-23 19:58] LABS: Albumin 2.6 g/dL (3.4-5.0); Anion Gap 15 meq/L (5-15); Aspartate Aminotransferase 106 U/L (15-37); Blood Urea Nitrogen 32 mg/dL (7-18); Carbon Dioxide 19.5 meq/L (21.0-32.0); Chloride 103 meq/L (98-107); Glomerular Filtration Rate 54 mL/min (>89); Glucose,Random 131 mg/dL (74-106); Lipase 195 U/L (73-393); Magnesium 1.7 mg/dL (1.5-2.5); Potassium 4.3 meq/L (3.5-5.1); Sodium 137 meq/L (136-145)
[2018-03-23 19:59] LABS: INR 1.4 Ratio; Prothrombin Time 13.7 sec (9.8-11.6)
--- NOTE | 2018-03-23 20:01 | XR ---
EXAM DATE: 03/23/2018 7:41 PM EDT AGE/SEX: 58 years / Male INDICATIONS: Shortness of breath. CLINICAL DATA: This is the patient's initial encounter. Patient reports that signs and symptoms have been present for 1 day and indicates a pain score of 0/10. MEDICAL/SURGICAL HISTORY: Hypertension. None. COMPARISON: [facility] [place], CHEST SINGLE AP, 10/08/2017. . FINDINGS: Frontal view of the chest demonstrates the lungs to be symmetrically aerated. There is, however, some loss of delineation of the left hemidiaphragm without definite infiltrate. There is a fracture of th e posterior lateral left ninth rib with mild displacement. No evidence of pneumothorax. The mediastin al structures are in the midline. CONCLUSION: Mildly displaced fracture of the posterior lateral left seventh rib, acute. Mild atelectasis left guillermo g base. No evidence of pneumothorax. Electronically signed by: Artie Pinedo MD 03/23/2018 8:00 PM EDT
[2018-03-23 20:06] LABS: Alanine Aminotransferase 68 U/L (12-78); Alkaline Phosphatase 105 U/L (45-117); Total Protein 8.4 g/dL (6.4-8.2)
[2018-03-23] MEDS ORDERED: Morphine Sulfate Inj 2 MG/ML Vial IV.PUSH ONE (20:44)
[2018-03-23 20:45] LABS: Creatine Kinase 142 U/L (39-308)
[2018-03-23] MEDS: Octreotide Inj 500 MCG in Sodium Chlor 0.9% Inj 500 ML IV.CONT SCH (21:25)
[2018-03-23 21:43] LABS: Platelet Morphology Normal (Normal)
[2018-03-23 21:44] LABS: Spherocytes Occ
--- NOTE | 2018-03-23 22:04 | CT ---
EXAM DATE: 03/23/2018 9:15 PM EDT AGE/SEX: 58 years / Male INDICATIONS: Bloody emesis for three days. CLINICAL DATA: This is the patient's initial encounter. Patient reports that signs and symptoms have been present for 3 days and indicates a pain score of 4/10. MEDICAL/SURGICAL HISTORY: None. None. ORAL CONTRAST: No oral contrast ingested. RADIATION DOSE: 10.58 CTDI (mGy) COMPARISON: [facility] [place], CT ABDOMEN & PELVIS W CONTRAST, 10/08/2017. . TECHNIQUE: Multiple contiguous axial images were obtained through the abdomen and pelvis following b olus infusion of 88 ml Omnipaque 350 (iohexol) nonionic water-soluble contrast as a single exam dos e. No oral contrast ingested. Using automated exposure control and adjustment of the mA and/or kV ac cording to patient size, radiation dose was kept as low as reasonably achievable to obtain optimal di agnostic quality images. DICOM format image data is available electronically for review and comparis on. FINDINGS: Lower Lungs: The visualized lower lungs are clear. Liver: The liver has a homogeneous density without space-occupying lesion. Hepatomegaly stable from p rior with craniocaudal dimension 20 cm.. There is no dilation of the biliary tree. No calcified galls tones. Spleen: Homogeneous density without enlargement. Pancreas: Unremarkable without mass or calcification. Kidneys: Normal in size and shape. No evidence of mass or hydronephrosis. Adrenal Glands: Unremarkable. Aorta: The aorta and proximal iliac vessels are grossly unremarkable without aneurysmal dilation. Bowel/Mesentery: No dilated loops of small or large bowel. The appendix is identified in the right l ower quadrant and has a normal size and appearance. No evidence of free fluid. Abdominal Wall: Intact. Retroperitoneum: No evidence of adenopathy in the retrocrural, para-aortic, or deep pelvic regions. Bladder: Contours are smooth. Reproductive Organs: No abnormal masses or calcifications seen. Inguinal: The inguinal region is unremarkable without evidence of adenopathy. Bony Structures: Stable exuberant hypertrophic changes in the lumbar spine.. CONCLUSION: 1. No acute findings. 2. Stable hepatomegaly and mild steatosis. Electronically signed by: Artie Pinedo MD 03/23/2018 10:03 PM EDT
[2018-03-23] MEDS ORDERED: LORazepam 1 MG Tablet PO PRN (22:28)
[2018-03-23] MEDS ORDERED: Haloperidol Inj 5 MG/ML Ampul IV.PUSH PRN (22:28)
[2018-03-23 23:21] LABS: Hematocrit 32.7 % (39.0-51.0); Hemoglobin 10.6 gm/dL (13.0-17.0)
--- NOTE | 2018-03-23 23:32 | ECG ---
Date Performed: 03/23/2018 Time Performed: 19:08:53 PTAGE: 58 years EKG: SINUS TACHYCARDIA ABNORMAL RHYTHM ECG Compared to PREVIOUS TRACING , rate has increased DOCTOR: Manuel Hudson Interpretating Date/Time 03/23/2018 23:31:00
[2018-03-24] MEDS: Sod Chloride 0.9% Inj 1,000 ML IV.CONT SCH ×2 (00:17→09:08)
[2018-03-24] MEDS: Octreotide Inj 500 MCG in Sodium Chlor 0.9% Inj 500 ML IV.CONT SCH ×2 (06:25→16:40)
[2018-03-24] MEDS: Pantoprazole Inj 80 MG in Sodium Chlor 0.9% Inj 100 ML IV.CONT SCH ×2 (06:25→16:40)
--- NOTE | 2018-03-24 07:56 | P.HPIM ---
History of Present Illness Service: Hospitalist Primary Care Physician: No Primary Care Physician History of Present Illness: Mr. Earl is a 58 y/o WM with history of alcohol abuse, GIB and duodenal ulcer. Pt presented to the ED at [facility] [place] on 03/23/18 with complaints of vomiting bright red blood and having dark tarry stools for 3 days. He was evaluated at [facility] in 10/2017 with a GIB. He underwent evaluation with EGD on 10/08/17 which revealed Caitlin-Ronquillo tear, gastritis, and large non-bleeding ulcer in the duodenal bulb. Pt has continued to drink alcohol, approximately 4 beers per day. According to ED documentation, when the EMS arrives the pt was hypotensive with systolic blood pressure of 66 on scene and he had a syncopal episode. Pt was given Zofran 4 mg IV and normal saline 500 mL bolus. Upon arrival to the ED his BP had improved and has remained stable. He reports that prior to being admitted in October 2017 he had been taking a lot of NSAIDs but since that time he rarely will use any anti-inflammatories. He denies take any aspirin or anticoagulants. Pt reports that he was taking the NSAIDs for chronic abdominal pain which has been going on since earlier this year. It is mostly RLQ abdominal pain which waxes and wanes in intensity. He cannot provide any palliative or provocative measures regarding the abdominal pain. His labs at admission noted Hgb 11.2/Hct 34.9 which decreased to Hgb 10.6/Hct 32.7 last night. Repeat labs for this morning are pending. Past Medical Hx: Alcohol abuse Duodenal ulcer Past Surgical Hx: EGD (10/08/17) --> Caitlin-Ronquillo tear, gastritis, large non-bleeding ulcer in the duodenal bulb Family Hx: Both parents with both diabetes mellitus and coronary artery disease Social Hx: (+)Tobacco use, one pack per day. (+)Alcohol use, drinks approximately 4 - 16 ounce cans of beer daily. Denies illicit drugs. - Diagnosis (1) Acute GI bleeding (2) Alcohol abuse (3) Abdominal pain Review of Systems vomiting blood. black stool Constitutional: Denies chills, Denies fever(s) Ears, Nose, Mouth, and Throat: Denies bleeding gums, Denies dizziness Cardiovascular: Denies chest pain, Denies generalized swelling, Denies leg swelling, Denies shortness of breath Respiratory: Denies chest congestion, Denies shortness of breath Gastrointestinal: Reports abdominal pain, Reports black, tarry stools, Reports nausea, Reports vomiting, Reports vomiting blood, Denies difficulty swallowing Genitourinary: Denies urinary frequency, Denies urinary hesitancy, Denies urinary incontinence Skin/Breast: Denies rash Neurologic: Denies dizziness PMFSH - History History Provided By: Patient - Medical History Medical History: Medical History (Last Updated 03/23/18 @ 19:13 by Josefina Burgos RN) EtOH dependence - Tobacco History Second Hand Smoke Exposure: Yes Tobacco Use In Past 30 Days: Yes Smoking Status: Current every day smoker Tobacco Type: Cigarettes - Alcohol History How Often Do You Have a Drink Containing Alcohol: 4 or more times a week - Substance Use History Substance History: Past History - Travel History Recent Travel in the [facility] Within the Last 8 Weeks: No Recent Travel Out of the Country Within the Last 8 Weeks: No - Immunization History Tetanus Immunization: Never Vaccinated Hx Influenza Vaccine This Season: No Medications and Allergies Allergies Allergy/AdvReac Type Severity Reaction Status Date / Time No Known Drug Allergies Allergy Weakness Verified 03/23/18 21:49 No Known Allergies Allergy Mild Weakness Uncoded 03/23/18 21:49 Active Medications: Active Medications Flumazenil (Romazecon Inj) 0.2 mg IV.PUSH Q1M PRN PRN Reason: OVERSEDATION Haloperidol Lactate (Haldol Inj) 1 mg IV.PUSH Q15M PRN PRN Reason: for severe agitation Pantoprazole Sodium 80 mg/ (Sodium Chloride) 100 mls @ 10 mls/hr IV.CONT CONT [facility] Last Admin: 03/24/18 06:25 Dose: 10 mls/hr Octreotide Acetate 500 mcg/ (Sodium Chloride) 500.5 mls @ 50.05 mls/hr IV.CONT .Q10H YORDAN Last Admin: 03/24/18 06:25 Dose: 50 mcg/hr, 50.05 mls/hr Sodium Chloride (Ns Inj) 1,000 mls @ 100 mls/hr IV.CONT .Q10H YORDAN Last Admin: 03/24/18 00:17 Dose: 100 mls/hr Lorazepam (Ativan) 1 mg PO Q4H PRN PRN Reason: for CIWA 8-10 Lorazepam (Ativan Inj) 2 mg IV.PUSH Q2H PRN PRN Reason: for CIWA 11-14 Lorazepam (Ativan Inj) 2 mg IV.PUSH Q1H PRN PRN Reason: for CIWA 15-20 Lorazepam (Ativan Inj) 2 mg IV.PUSH Q15M PRN PRN Reason: for CIWA > 20 Lorazepam (Ativan Inj) 1 mg IV.PUSH Q4H PRN PRN Reason: for CIWA 8-10 Lorazepam (Ativan) 2 mg PO Q2H PRN PRN Reason: for CIWA 11-14 Ondansetron HCl (Zofran Inj) 4 mg IV.PUSH Q6H PRN PRN Reason: NAUSEA OR VOMITING Sodium Chloride (Ns Flush) 2 ml IV.FLUSH PRN PRN PRN Reason: FLUSH AFTER USING IV ACCESS Sodium Chloride (Ns Flush) 2 ml IV.FLUSH BID YORDAN Sodium Chloride (Ns Flush) 2 ml IV.FLUSH PRN PRN PRN Reason: FLUSH AFTER USING IV ACCESS Exam Vital signs: Vital Signs 03/23/18 18:58 03/23/18 19:22 03/23/18 20:26 Temperature 98.1 F Pulse Rate 105 H 102 H 97 H Respiratory Rate 20 18 18 Blood Pressure 132/88 139/80 136/75 Pulse Oximetry 98 98 98 03/23/18 21:38 03/24/18 00:00 03/24/18 04:00 Temperature 98.2 F 98.2 F Pulse Rate 98 H 91 H 91 H Respiratory Rate 20 20 20 Blood Pressure 154/84 H 121/74 121/72 Pulse Oximetry 97 96 95 Intake & Output 03/23/18 03/24/18 03/24/18 18:59 06:59 18:59 Intake Total 1650.5 / 1650.5 Balance 1650.5 / 1650.5 Weight 73.5 kg Intake: IV 1650.5 / 1650.5 SandoSTATIN Inj 500 MCG In NS 500.5 / 500.5 Inj 500 ML @ 50 MCG/HR 50.05 mls/hr IV.CONT .Q10H YORDAN Rx#: [id number] Protonix Inj 80 MG In NS Inj 100 / 100 100 ML @ 10 mls/hr IV.CONT CONT YORDAN Rx#:[id number] Protonix Inj 80 MG In NS Inj 50 50 / 50 ML @ 600 mls/hr IV.SIG BOLUS ONE Rx#:[id number] NS Inj 1,000 ML @ Wide Open IV. 1000 / 1000 SIG BOLUS ONE Rx#:[id number] Other: # Voids 2 Date of Last Bowel Movement 03/23/18 Narrative: GENERAL: NAD, AAOx3 SKIN: Warm and dry. HEENT: Atraumatic. Normocephalic. Pupils equal and round. No scleral icterus. No injection or drainage. No nasal bleeding or discharge. Mucous membranes pink and moist. NECK: Trachea midline. No JVD. CARDIO: Regular. RESP: No accessory muscle use. Clear to auscultation. Breath sounds equal bilaterally. ABD: +BS, soft, mildly distended, RLQ tenderness to palpation, no rebound. EXT: Extremities without clubbing, cyanosis, or edema. No obvious deformities. NEURO: Awake and alert. No obvious cranial nerve deficits. Motor grossly within normal limits. Five out of 5 muscle strength in the arms and legs. Normal speech. PSYCHIATRIC: Appropriate mood and affect; insight and judgment normal. Results - Labs CBC & Chem 7: 03/25/18 14:10 03/25/18 08:58 Labs: Short CBC 03/23/18 03/23/18 Range/Units 19:20 23:08 WBC 9.1 (4.0-11.0) th/mm3 Hgb 11.2 L 10.6 L (13.0-17.0) gm/dL Hct 34.9 L 32.7 L (39.0-51.0) % Plt Count 99 L (150-450) th/mm3 BMP 03/23/18 19:20 Sodium 137 Potassium 4.3 Chloride 103 Carbon Dioxide 19.5 L BUN 32 H Creatinine 1.36 H Calcium 8.0 L Cardiac Enzymes 03/23/18 Range/Units 19:20 Total Creatine Kinase 142 (39-308) U/L Troponin I Less than 0.02 L (0.02-0.05) ng/mL Liver Function 03/23/18 Range/Units 19:20 Total Bilirubin 1.6 H (0.2-1.0) mg/dL AST 106 H (15-37) U/L ALT 68 (12-78) U/L Alkaline Phosphatase 105 (45-117) U/L Albumin 2.6 L (3.4-5.0) g/dL - Imaging Impressions Chest X-Ray 03/23/18 19:10 CONCLUSION: Mildly displaced fracture of the posterior lateral left seventh rib, acute. Mild atelectasis left lung base. No evidence of pneumothorax. Abdomen/Pelvis CT 03/23/18 19:51 CONCLUSION: 1. No acute findings. 2. Stable hepatomegaly and mild steatosis. Caprini VTE Risk Assessment Caprini VTE Risk Assessment: Moderate/High Risk (score >= 2) VTE Pharmacological Exception Reason: Hemorrhage Caprini Risk Assessment Model: Point Value = 1 Point Value = 2 Point Value = 3 Point Value = 5 Age 41-60 Minor surgery BMI > 25 kg/m2 Swollen legs Varicose veins or History of unexplained or recurrent spontaneous Oral contraceptives or hormone replacement Sepsis (< 1 month) Serious lung disease, including pneumonia (< 1 month) Abnormal pulmonary function Acute myocardial infarction Congestive heart failure (< 1 month) History of inflammatory bowel disease Medical patient at bed rest Age 61-74 Arthroscopic surgery Major open surgery (> 45 min) Laparoscopic surgery (> 45 min) Malignancy Confined to bed (> 72 hours) Immobilizing plaster cast Central venous access Age >= 75 History of VTE Family history of VTE Factor V Leiden Prothrombin [id number] Lupus anticoagulant Anticardiolipin antibodies Elevated serum homocysteine Heparin-induced thrombocytopenia Other congenital or acquired thrombophilia Stroke (< 1 month) Elective arthroplasty Hip, pelvis, or leg fracture Acute spinal cord injury (< 1 month) Prophylaxis Regimen: Total Risk Factor Score Risk Level Prophylaxis Regimen 0-1 Low Early ambulation 2 Moderate Order ONE of the following: *Sequential Compression Device (SCD) *Heparin 5000 units SQ BID 3-4 Higher Order ONE of the following medications: *Heparin 5000 units SQ TID *Enoxaparin/Lovenox 40 mg SQ daily (WT < 150 kg, CrCl > 30 mL/min) *Enoxaparin/Lovenox 30 mg SQ daily (WT < 150 kg, CrCl > 10-29 mL/min) *Enoxaparin/Lovenox 30 mg SQ BID (WT < 150 kg, CrCl > 30 mL/min) AND/OR *Sequential Compression Device (SCD) 5 or more Highest Order ONE of the following medications: *Heparin 5000 units SQ TID (Preferred with Epidurals) *Enoxaparin/Lovenox 40 mg SQ daily (WT < 150 kg, CrCl > 30 mL/min) *Enoxaparin/Lovenox 30 mg SQ daily (WT < 150 kg, CrCl > 10-29 mL/min) *Enoxaparin/Lovenox 30 mg SQ BID (WT < 150 kg, CrCl > 30 mL/min) AND *Sequential Compression Device (SCD) Assessment and Plan - Assessment (1) Acute GI bleeding Code(s): K92.2 - Gastrointestinal hemorrhage, unspecified Status: Acute Plan: Acute GIB Hx of duodenal ulcer Hx of Caitlin-Ronquillo tear - Pt is a 58 y/o WM with history of alcohol abuse, GIB and duodenal ulcer. - Pt presented to the ED at [facility] [place] on 03/23/18 with complaints of vomiting bright red blood and having dark tarry stools that began 3 days ago. He has hx of GIB in 10/2017 and underwent evaluation with EGD on 10/08/17 which revealed Caitlin- Ronquillo tear, gastritis, and large non-bleeding ulcer in the duodenal bulb. Pt has continued to drink alcohol, approximately 4 beers per day. He reports that prior to being admitted in October 2017 he had been taking a lot of NSAIDs but since that time he rarely will use any anti-inflammatories. He denies take any aspirin or anticoagulants. - His labs at admission noted Hgb 11.2/Hct 34.9 which decreased to Hgb 10.6/Hct 32.7 last night. Repeat labs for this morning are pending. - Pt started on Protonix and Octreotide gtt, no further vomiting since last night - GI is consulted - Pt is NPO - Monitor H/H closely - Notify GI for any active bleeding - Cont. IVF - Supportive care Alcohol abuse - CIWA protocol is ordered - Discussed alcohol cessation Abdominal pain - Pain is mostly in the RLQ, has been present for several months. - CT Abd/pelvis (03/23/18) --> No acute findings. Stable hepatomegaly and mild steatosis. - Pt has not been evaluated by colonoscopy previously - DVT prophylaxis with SCDs The exam, history, and the medical decision-making described in the above note were completed with the assistance of the mid-level provider. I reviewed and agree with the findings presented. I attest that I had a [id number] encounter with the patient on the same day, and personally performed and documented my assessment and findings in the medical record. etoh abuse. risk for dt's. ciwa initiated hx duodenal ulcer from etoh/nsaids pt now with ugib. going for egd. octreotide, ppi, ivf and npo until ok with GI> (2) Alcohol abuse Code(s): F10.10 - Alcohol abuse, uncomplicated Status: Acute (3) Abdominal pain Code(s): R10.9 - Unspecified abdominal pain Status: Acute - Attending Attestation The exam, history, and the medical decision-making described in the above note were completed with the assistance of the mid-level provider. I reviewed and agree with the findings presented. I attest that I had a [id number] encounter with the patient on the same day, and personally performed and documented my assessment and findings in the medical record. H&P: Quality - VTE Deep Vein Thrombosis/Pulmonary Embolism Present on Admission: No
[2018-03-24 09:06] LABS: Baso # (Auto) 0.1 th/mm3 (0.0-0.2); Baso % (Auto) 0.9 % (0.0-2.0); Eos # (Auto) 0.1 th/mm3 (0.0-0.4); Hematocrit 29.5 % (39.0-51.0); Hemoglobin 9.6 gm/dL (13.0-17.0); Lymph # (Auto) 2.6 th/mm3 (1.0-4.8); Lymph % (Auto) 34.9 % (9.0-44.0); Mean Corpuscular HGB Conc 32.5 % (32.0-36.0); Mean Corpuscular Hemoglobin 27.5 pg (27.0-34.0); Mean Corpuscular Volume 84.7 fL (80.0-100.0); Mean Platelet Volume 8.4 fL (7.0-11.0); Mono # (Auto) 0.7 th/mm3 (0.0-0.9); Mono % (Auto) 9.6 % (0.0-8.0); Neut % (Auto) 53.6 % (16.0-70.0); Platelet Count 93 th/mm3 (150-450); Red Blood Count 3.49 mil/mm3 (4.50-5.90); Red Cell Distribution Width 17.1 % (11.6-17.2); White Blood Count 7.5 th/mm3 (4.0-11.0)
[2018-03-24 09:50] LABS: Albumin 2.4 g/dL (3.4-5.0); Calcium 7.3 mg/dL (8.5-10.1); Carbon Dioxide 22.1 meq/L (21.0-32.0); Potassium 4.4 meq/L (3.5-5.1); Total Protein 7.3 g/dL (6.4-8.2)
[2018-03-24 09:53] LABS: Platelet Morphology Normal (Normal)
--- NOTE | 2018-03-24 10:56 | P.CONGI ---
History of Present Illness Consult date: 03/24/18 Consult reason: GI bleed Chief complaint: GI Bleed History of Present Illness: This is a 58-year-old male who came to the emergency room on 03/23/2018 with complaints vomiting bright red blood and black tarry stools for the last 3 days. Patient has a significant history of alcohol abuse as well as GI bleed and had EGD back in October [address] Hill. / [place] he was noted to have a Caitlin-Ronquillo tear, gastritis, and large nonbleeding ulcer in the duodenal bulb. Patient was discharged from the hospital but has continued to drink alcohol on a regular basis and never came back to the GI office for any follow- up. Patient states he now has insurance and wants to try to his GI symptoms under control. Currently patient states symptoms of nausea vomiting, abdominal pain which is in the mid upper quadrant and right lower quadrant. Worsened over the past 3 days. Patient also notes some mild fatigue and has taken NSAIDs off and on in the past but states he has been taking less amounts recently. Current labs show hemoglobin initially on admission 11.2 now 10.6, PT /INR 1.4, ammonia level 56, bilirubin 1.6, AST 106, ALT 68. Patient's currently being maintained on an octreotide drip, Protonix drip, and IV fluids. Patient notes no family history of colon cancer and no previous colonoscopy. CT scan shows stable hepatomegaly and mild steatosis patient is a fairly good historian at this point and is answering questions appropriately. Gastroenterology has been consulted to assist with his hematemesis and melena symptoms as well as he is elevated bilirubin and LFTs. <Pavithra Tran - Last Filed: 03/24/18 15:36> Review of Systems All other systems reviewed negative except as stated in HPI <Pavithra Tran - Last Filed: 03/24/18 15:36> PMFSH - Medical History Medical History: Medical History (Last Updated 03/23/18 @ 19:13 by Josefina Burgos RN) EtOH dependence <Clarence Lanier - Last Filed: 03/24/18 14:53> - History History Provided By: Patient - Medical History Medical History: Medical History (Last Updated 03/23/18 @ 19:13 by Josefina Burgos RN) EtOH dependence - Tobacco History Second Hand Smoke Exposure: Yes Tobacco Use In Past 30 Days: Yes Smoking Status: Current every day smoker Tobacco Type: Cigarettes - Alcohol History How Often Do You Have a Drink Containing Alcohol: 4 or more times a week - Substance Use History Substance History: Past History - Travel History Recent Travel in the [place] Within the Last 8 Weeks: No Recent Travel Out of the Country Within the Last 8 Weeks: No - Immunization History Tetanus Immunization: Never Vaccinated Hx Influenza Vaccine This Season: No <Pavithra Tran - Last Filed: 03/24/18 15:36> Medications and Allergies Active Medications: Active Medications Chlorhexidine Gluconate (Chlorhexidine 2% Cloth) 3 pack [employer] [facility] Stop: 03/27/18 14:16 Flumazenil (Romazecon Inj) 0.2 mg IV.PUSH Q1M PRN PRN Reason: OVERSEDATION Haloperidol Lactate (Haldol Inj) 1 mg IV.PUSH Q15M PRN PRN Reason: for severe agitation Pantoprazole Sodium 80 mg/ (Sodium Chloride) 100 mls @ 10 mls/hr IV.CONT CONT [facility] Last Admin: 03/24/18 06:25 Dose: 10 mls/hr Octreotide Acetate 500 mcg/ (Sodium Chloride) 500.5 mls @ 50.05 mls/hr IV.CONT .Q10H [facility] Last Admin: 03/24/18 06:25 Dose: 50 mcg/hr, 50.05 mls/hr Sodium Chloride (Ns Inj) 1,000 mls @ 100 mls/hr IV.CONT .Q10H [facility] Last Admin: 03/24/18 09:08 Dose: 100 mls/hr Lactated Ringer's (Lr 1000 Ml Inj) 1,000 mls @ 30 mls/hr IV.SIG .Q24H [facility] Stop: 03/27/18 14:16 Sodium Chloride (Ns Inj) 500 mls @ 30 mls/hr IV.SIG .Q10H [facility] Stop: 03/27/18 14:16 Lorazepam (Ativan) 1 mg PO Q4H PRN PRN Reason: for CIWA 8-10 Lorazepam (Ativan Inj) 2 mg IV.PUSH Q2H PRN PRN Reason: for CIWA 11-14 Lorazepam (Ativan Inj) 2 mg IV.PUSH Q1H PRN PRN Reason: for CIWA 15-20 Lorazepam (Ativan Inj) 2 mg IV.PUSH Q15M PRN PRN Reason: for CIWA > 20 Lorazepam (Ativan Inj) 1 mg IV.PUSH Q4H PRN PRN Reason: for CIWA 8-10 Last Admin: 03/24/18 11:05 Dose: 1 mg Lorazepam (Ativan) 2 mg PO Q2H PRN PRN Reason: for CIWA 11-14 Metoprolol Tartrate (Lopressor) 25 mg PO [employer] [facility] Stop: 03/27/18 14:16 Ondansetron HCl (Zofran Inj) 4 mg IV.PUSH Q6H PRN PRN Reason: NAUSEA OR VOMITING Last Admin: 03/24/18 11:12 Dose: 4 mg Povidone Iodine (Betadine 5% Antisepsis Kit) 1 applicatio EACH [employer] [facility] Stop: 03/27/18 14:16 Sodium Chloride (Ns Flush) 2 ml IV.FLUSH PRN PRN PRN Reason: FLUSH AFTER USING IV ACCESS Sodium Chloride (Ns Flush) 2 ml IV.FLUSH BID [facility] Last Admin: 03/24/18 11:51 Dose: Not Given Sodium Chloride (Ns Flush) 2 ml IV.FLUSH PRN PRN PRN Reason: FLUSH AFTER USING IV ACCESS <Clarence Lanier E - Last Filed: 03/24/18 14:53> Active Medications: Active Medications Flumazenil (Romazecon Inj) 0.2 mg IV.PUSH Q1M PRN PRN Reason: OVERSEDATION Haloperidol Lactate (Haldol Inj) 1 mg IV.PUSH Q15M PRN PRN Reason: for severe agitation Pantoprazole Sodium 80 mg/ (Sodium Chloride) 100 mls @ 10 mls/hr IV.CONT CONT [facility] Last Admin: 03/24/18 06:25 Dose: 10 mls/hr Octreotide Acetate 500 mcg/ (Sodium Chloride) 500.5 mls @ 50.05 mls/hr IV.CONT .Q10H [facility] Last Admin: 03/24/18 06:25 Dose: 50 mcg/hr, 50.05 mls/hr Sodium Chloride (Ns Inj) 1,000 mls @ 100 mls/hr IV.CONT .Q10H [facility] Last Admin: 03/24/18 09:08 Dose: 100 mls/hr Lorazepam (Ativan) 1 mg PO Q4H PRN PRN Reason: for CIWA 8-10 Lorazepam (Ativan Inj) 2 mg IV.PUSH Q2H PRN PRN Reason: for CIWA 11-14 Lorazepam (Ativan Inj) 2 mg IV.PUSH Q1H PRN PRN Reason: for CIWA 15-20 Lorazepam (Ativan Inj) 2 mg IV.PUSH Q15M PRN PRN Reason: for CIWA > 20 Lorazepam (Ativan Inj) 1 mg IV.PUSH Q4H PRN PRN Reason: for CIWA 8-10 Lorazepam (Ativan) 2 mg PO Q2H PRN PRN Reason: for CIWA 11-14 Ondansetron HCl (Zofran Inj) 4 mg IV.PUSH Q6H PRN PRN Reason: NAUSEA OR VOMITING Sodium Chloride (Ns Flush) 2 ml IV.FLUSH PRN PRN PRN Reason: FLUSH AFTER USING IV ACCESS Sodium Chloride (Ns Flush) 2 ml IV.FLUSH BID [facility] Sodium Chloride (Ns Flush) 2 ml IV.FLUSH PRN PRN PRN Reason: FLUSH AFTER USING IV ACCESS <Pavithra Tran - Last Filed: 03/24/18 15:36> Allergies Allergy/AdvReac Type Severity Reaction Status Date / Time No Known Drug Allergies Allergy Weakness Verified 03/23/18 21:49 No Known Allergies Allergy Mild Weakness Uncoded 03/23/18 21:49 Home Medications Medication Instructions Recorded Confirmed Type lactulose 03/23/18 History Exam Vital signs: Vital Signs 03/23/18 18:58 03/23/18 19:22 03/23/18 20:26 Temperature 98.1 F Pulse Rate 105 H 102 H 97 H Respiratory Rate 20 18 18 Blood Pressure 132/88 139/80 136/75 Pulse Oximetry 98 98 98 03/23/18 21:38 03/24/18 00:00 03/24/18 04:00 Temperature 98.2 F 98.2 F Pulse Rate 98 H 91 H 91 H Respiratory Rate 20 20 20 Blood Pressure 154/84 H 121/74 121/72 Pulse Oximetry 97 96 95 03/24/18 08:00 03/24/18 11:59 Temperature 98.3 F 98.0 F Pulse Rate 83 78 Respiratory Rate 16 16 Blood Pressure 154/95 H 154/89 H Pulse Oximetry 94 L 94 L Intake & Output 03/23/18 03/24/18 03/24/18 18:59 06:59 18:59 Intake Total 1650.5 / 1650.5 1000 / 1000 Balance 1650.5 / 1650.5 1000 / 1000 Weight 73.5 kg 73.5 kg Intake: IV 1650.5 / 1650.5 1000 / 1000 SandoSTATIN Inj 500 MCG In NS 500.5 / 500.5 Inj 500 ML @ 50 MCG/HR 50.05 mls/hr IV.CONT .Q10H [facility] Rx#: [id number] Protonix Inj 80 MG In NS Inj 100 / 100 100 ML @ 10 mls/hr IV.CONT CONT [facility] Rx#:[id number] NS Inj 1,000 ML @ 100 mls/hr IV 1000 / 1000 .CONT .Q10H [facility] Rx#:[id number] Protonix Inj 80 MG In NS Inj 50 50 / 50 ML @ 600 mls/hr IV.SIG BOLUS ONE Rx#:[id number] NS Inj 1,000 ML @ Wide Open IV. 1000 / 1000 SIG BOLUS ONE Rx#:[id number] Other: # Voids 2 Date of Last Bowel Movement 03/23/18 Weight On Admission 175.26 kg <Clarence Lanier E - Last Filed: 03/24/18 14:53> Vital signs: Vital Signs 03/23/18 18:58 03/23/18 19:22 03/23/18 20:26 Temperature 98.1 F Pulse Rate 105 H 102 H 97 H Respiratory Rate 20 18 18 Blood Pressure 132/88 139/80 136/75 Pulse Oximetry 98 98 98 03/23/18 21:38 03/24/18 00:00 03/24/18 04:00 Temperature 98.2 F 98.2 F Pulse Rate 98 H 91 H 91 H Respiratory Rate 20 20 20 Blood Pressure 154/84 H 121/74 121/72 Pulse Oximetry 97 96 95 03/24/18 08:00 Temperature 98.3 F Pulse Rate 83 Respiratory Rate 16 Blood Pressure 154/95 H Pulse Oximetry 94 L Intake & Output 03/23/18 03/24/18 03/24/18 18:59 06:59 18:59 Intake Total 1650.5 / 1650.5 1000 / 1000 Balance 1650.5 / 1650.5 1000 / 1000 Weight 73.5 kg Intake: IV 1650.5 / 1650.5 1000 / 1000 SandoSTATIN Inj 500 MCG In NS 500.5 / 500.5 Inj 500 ML @ 50 MCG/HR 50.05 mls/hr IV.CONT .Q10H [facility] Rx#: [id number] Protonix Inj 80 MG In NS Inj 100 / 100 100 ML @ 10 mls/hr IV.CONT CONT [facility] Rx#:[id number] NS Inj 1,000 ML @ 100 mls/hr IV 1000 / 1000 .CONT .Q10H [facility] Rx#:[id number] Protonix Inj 80 MG In NS Inj 50 50 / 50 ML @ 600 mls/hr IV.SIG BOLUS ONE Rx#:[id number] NS Inj 1,000 ML @ Wide Open IV. 1000 / 1000 SIG BOLUS ONE Rx#:[id number] Other: # Voids 2 Date of Last Bowel Movement 03/23/18 - Constitutional mild distress - Routine HEENT Exam Head: Present: normocephalic ENT: Present: mucous membranes moist (Obese) - Routine Neck Exam Present: supple - Routine Respiratory Exam Present: accessory muscle use - Routine Cardiovascular Exam Present: S1 (No obvious shortness of breath or wheezing), S2 - Routine Abdominal Exam Present: soft (Round,), normoactive bowel sounds (Does have right upper quadrant pressure and some tenderness as well as epigastric and gastric abdominal pain, nausea and vomiting in the past 24 hours) - Routine Neurological Exam Present: alert (Awake answering simple questions appropriately and giving history briefly.) <Pavithra Tran - Last Filed: 03/24/18 15:36> Results - Labs CBC & Chem 7: 03/24/18 08:15 03/24/18 08:15 Labs: Laboratory Results - last 24 hr 03/23/18 03/23/18 03/23/18 19:20 19:20 19:20 WBC 9.1 RBC 4.05 L Hgb 11.2 L Hct 34.9 L MCV 86.2 MCH 27.6 MCHC 32.0 RDW 17.6 H Plt Count 99 L MPV 8.1 Prelim Diff (Auto) Slide review pending Neut % (Auto) 61.9 Lymph % (Auto) 24.5 [place] % (Auto) 12.1 H Eos % (Auto) 0.7 Baso % (Auto) 0.8 Neut # (Auto) 5.6 Lymph # (Auto) 2.2 [place] # (Auto) 1.1 H Eos # (Auto) 0.1 Baso # (Auto) 0.1 WBC Differential . Diff Scan Auto diff confirmed Differential Comment . Platelet Estimate Low L Platelet Morphology Normal Spherocytes Occ H PT 13.7 H INR 1.4 APTT 25.0 Sodium 137 Potassium 4.3 Chloride 103 Carbon Dioxide 19.5 L Anion Gap 15 BUN 32 H Creatinine 1.36 H Estimated GFR 54 L Random Glucose 131 H Calcium 8.0 L Prot Corrected Calcium Magnesium 1.7 Total Bilirubin 1.6 H AST 106 H ALT 68 Alkaline Phosphatase 105 Ammonia Total Creatine Kinase Troponin I Total Protein 8.4 H Albumin 2.6 L Lipase 195 Serum Alcohol Less than 3 Blood Type Blood Type Recheck Antibody Screen 03/23/18 03/23/18 03/23/18 19:20 19:20 23:06 WBC RBC Hgb Hct MCV MCH MCHC RDW Plt Count MPV Prelim Diff (Auto) Neut % (Auto) Lymph % (Auto) [place] % (Auto) Eos % (Auto) Baso % (Auto) Neut # (Auto) Lymph # (Auto) [place] # (Auto) Eos # (Auto) Baso # (Auto) WBC Differential Diff Scan Differential Comment Platelet Estimate Platelet Morphology Spherocytes PT INR APTT Sodium Potassium Chloride Carbon Dioxide Anion Gap BUN Creatinine Estimated GFR Random Glucose Calcium Prot Corrected Calcium Magnesium Total Bilirubin AST ALT Alkaline Phosphatase Ammonia 56 H Total Creatine Kinase 142 Troponin I Less than 0.02 L Total Protein Albumin Lipase Serum Alcohol Blood Type B Positive Blood Type Recheck Not needed Antibody Screen Negative 03/23/18 03/24/18 03/24/18 23:08 08:15 08:15 WBC 7.5 RBC 3.49 L Hgb 10.6 L 9.6 L Hct 32.7 L 29.5 L MCV 84.7 MCH 27.5 MCHC 32.5 RDW 17.1 Plt Count 93 L MPV 8.4 Prelim Diff (Auto) Slide review pending Neut % (Auto) 53.6 Lymph % (Auto) 34.9 [place] % (Auto) 9.6 H Eos % (Auto) 1.0 Baso % (Auto) 0.9 Neut # (Auto) 4.0 Lymph # (Auto) 2.6 [place] # (Auto) 0.7 Eos # (Auto) 0.1 Baso # (Auto) 0.1 WBC Differential . Diff Scan Auto diff confirmed Differential Comment . Platelet Estimate Low L Platelet Morphology Normal Spherocytes PT INR APTT Sodium 142 Potassium 4.4 Chloride 110 H Carbon Dioxide 22.1 Anion Gap 10 BUN 34 H Creatinine 1.21 Estimated GFR 61 L Random Glucose 108 H Calcium 7.3 L* Prot Corrected Calcium 7.3 L* Magnesium Total Bilirubin 1.3 H AST 86 H ALT 57 Alkaline Phosphatase 93 Ammonia Total Creatine Kinase Troponin I Total Protein 7.3 D Albumin 2.4 L Lipase Serum Alcohol Blood Type Blood Type Recheck Antibody Screen 03/24/18 08:15 WBC RBC Hgb Hct MCV MCH MCHC RDW Plt Count MPV Prelim Diff (Auto) Neut % (Auto) Lymph % (Auto) [place] % (Auto) Eos % (Auto) Baso % (Auto) Neut # (Auto) Lymph # (Auto) [place] # (Auto) Eos # (Auto) Baso # (Auto) WBC Differential Diff Scan Differential Comment Platelet Estimate Platelet Morphology Spherocytes PT INR APTT Sodium Potassium Chloride Carbon Dioxide Anion Gap BUN Creatinine Estimated GFR Random Glucose Calcium Prot Corrected Calcium Magnesium Total Bilirubin AST ALT Alkaline Phosphatase Ammonia 84 H Total Creatine Kinase Troponin I Total Protein Albumin Lipase Serum Alcohol Blood Type Blood Type Recheck Antibody Screen - Imaging Impressions Chest X-Ray 03/23/18 19:10 CONCLUSION: Mildly displaced fracture of the posterior lateral left seventh rib, acute. Mild atelectasis left lung base. No evidence of pneumothorax. Abdomen/Pelvis CT 03/23/18 19:51 CONCLUSION: 1. No acute findings. 2. Stable hepatomegaly and mild steatosis. <Clarence Lanier - Last Filed: 03/24/18 14:53> - Labs CBC & Chem 7: 03/24/18 08:15 03/24/18 08:15 Labs: Laboratory Results - last 24 hr 03/23/18 03/23/18 03/23/18 19:20 19:20 19:20 WBC 9.1 RBC 4.05 L Hgb 11.2 L Hct 34.9 L MCV 86.2 MCH 27.6 MCHC 32.0 RDW 17.6 H Plt Count 99 L MPV 8.1 Prelim Diff (Auto) Slide review pending Neut % (Auto) 61.9 Lymph % (Auto) 24.5 [place] % (Auto) 12.1 H Eos % (Auto) 0.7 Baso % (Auto) 0.8 Neut # (Auto) 5.6 Lymph # (Auto) 2.2 [place] # (Auto) 1.1 H Eos # (Auto) 0.1 Baso # (Auto) 0.1 WBC Differential . Diff Scan Auto diff confirmed Differential Comment . Platelet Estimate Low L Platelet Morphology Normal Spherocytes Occ H PT 13.7 H INR 1.4 APTT 25.0 Sodium 137 Potassium 4.3 Chloride 103 Carbon Dioxide 19.5 L Anion Gap 15 BUN 32 H Creatinine 1.36 H Estimated GFR 54 L Random Glucose 131 H Calcium 8.0 L Prot Corrected Calcium Magnesium 1.7 Total Bilirubin 1.6 H AST 106 H ALT 68 Alkaline Phosphatase 105 Ammonia Total Creatine Kinase Troponin I Total Protein 8.4 H Albumin 2.6 L Lipase 195 Serum Alcohol Less than 3 Blood Type Blood Type Recheck Antibody Screen 03/23/18 03/23/18 03/23/18 19:20 19:20 23:06 WBC RBC Hgb Hct MCV MCH MCHC RDW Plt Count MPV Prelim Diff (Auto) Neut % (Auto) Lymph % (Auto) [place] % (Auto) Eos % (Auto) Baso % (Auto) Neut # (Auto) Lymph # (Auto) [place] # (Auto) Eos # (Auto) Baso # (Auto) WBC Differential Diff Scan Differential Comment Platelet Estimate Platelet Morphology Spherocytes PT INR APTT Sodium Potassium Chloride Carbon Dioxide Anion Gap BUN Creatinine Estimated GFR Random Glucose Calcium Prot Corrected Calcium Magnesium Total Bilirubin AST ALT Alkaline Phosphatase Ammonia 56 H Total Creatine Kinase 142 Troponin I Less than 0.02 L Total Protein Albumin Lipase Serum Alcohol Blood Type B Positive Blood Type Recheck Not needed Antibody Screen Negative 03/23/18 03/24/18 03/24/18 23:08 08:15 08:15 WBC 7.5 RBC 3.49 L Hgb 10.6 L 9.6 L Hct 32.7 L 29.5 L MCV 84.7 MCH 27.5 MCHC 32.5 RDW 17.1 Plt Count 93 L MPV 8.4 Prelim Diff (Auto) Slide review pending Neut % (Auto) 53.6 Lymph % (Auto) 34.9 [place] % (Auto) 9.6 H Eos % (Auto) 1.0 Baso % (Auto) 0.9 Neut # (Auto) 4.0 Lymph # (Auto) 2.6 [place] # (Auto) 0.7 Eos # (Auto) 0.1 Baso # (Auto) 0.1 WBC Differential . Diff Scan Auto diff confirmed Differential Comment . Platelet Estimate Low L Platelet Morphology Normal Spherocytes PT INR APTT Sodium 142 Potassium 4.4 Chloride 110 H Carbon Dioxide 22.1 Anion Gap 10 BUN 34 H Creatinine 1.21 Estimated GFR 61 L Random Glucose 108 H Calcium 7.3 L* Prot Corrected Calcium 7.3 L* Magnesium Total Bilirubin 1.3 H AST 86 H ALT 57 Alkaline Phosphatase 93 Ammonia Total Creatine Kinase Troponin I Total Protein 7.3 D Albumin 2.4 L Lipase Serum Alcohol Blood Type Blood Type Recheck Antibody Screen 03/24/18 08:15 WBC RBC Hgb Hct MCV MCH MCHC RDW Plt Count MPV Prelim Diff (Auto) Neut % (Auto) Lymph % (Auto) [place] % (Auto) Eos % (Auto) Baso % (Auto) Neut # (Auto) Lymph # (Auto) [place] # (Auto) Eos # (Auto) Baso # (Auto) WBC Differential Diff Scan Differential Comment Platelet Estimate Platelet Morphology Spherocytes PT INR APTT Sodium Potassium Chloride Carbon Dioxide Anion Gap BUN Creatinine Estimated GFR Random Glucose Calcium Prot Corrected Calcium Magnesium Total Bilirubin AST ALT Alkaline Phosphatase Ammonia 84 H Total Creatine Kinase Troponin I Total Protein Albumin Lipase Serum Alcohol Blood Type Blood Type Recheck Antibody Screen - Imaging Impressions Chest X-Ray 03/23/18 19:10 CONCLUSION: Mildly displaced fracture of the posterior lateral left seventh rib, acute. Mild atelectasis left lung base. No evidence of pneumothorax. Abdomen/Pelvis CT 03/23/18 19:51 CONCLUSION: 1. No acute findings. 2. Stable hepatomegaly and mild steatosis. <Pavithra Tran - Last Filed: 03/24/18 15:36> Assessment and Plan (1) Hematemesis Status: Acute Code(s): K92.0 - Hematemesis (2) Acute GI bleeding Status: Acute Code(s): K92.2 - Gastrointestinal hemorrhage, unspecified (3) Alcohol abuse Status: Acute Code(s): F10.10 - Alcohol abuse, uncomplicated (4) Abdominal pain Status: Acute Code(s): R10.9 - Unspecified abdominal pain (5) Transaminitis Status: Acute Code(s): R74.0 - Nonspecific elevation of levels of transaminase and lactic acid dehydrogenase [LDH] (6) Elevated bilirubin Status: Acute Code(s): R17 - Unspecified jaundice - Attending Attestation Patient seen and examined Agree with above Continue with current supportive care Monitor labs EGD next Further recommendations shall depend on findings of EGD and hospital course <Clarence Lanier - Last Filed: 03/24/18 14:53> (1) Hematemesis Status: Acute Code(s): K92.0 - Hematemesis (2) Acute GI bleeding Status: Acute Code(s): K92.2 - Gastrointestinal hemorrhage, unspecified (3) Alcohol abuse Status: Acute Code(s): F10.10 - Alcohol abuse, uncomplicated (4) Abdominal pain Status: Acute Code(s): R10.9 - Unspecified abdominal pain (5) Transaminitis Status: Acute Code(s): R74.0 - Nonspecific elevation of levels of transaminase and lactic acid dehydrogenase [LDH] (6) Elevated bilirubin Status: Acute Code(s): R17 - Unspecified jaundice - Plan Elevated bilirubin and transaminitis, probably secondary to his alcohol abuse/ alcoholic hepatitis. Current labs show ammonia level 56, PT/INR 1.4, hemoglobin currently 11.6. CT scan shows stable hepatic ptosis and mild steatosis. Will recheck labs for previous liver workup back in October. Nausea and vomiting symptoms right upper quadrant abdominal pain and epigastric abdominal pain, all secondary to his possible esophageal varices and upper GI bleeding. Patient's currently being managed on IV Protonix and octreotide drip as well as IV fluids. Melena stools secondary to upper GI bleeding probable History of Caitlin-Ronquillo tear, EGD that was done back in October [address] Hill. Also has history of gastritis and large nonbleeding ulcer in the duodenal bulb. Hematemesis could be from this previous large ulcer in the duodenal bulb Liver labs back from October 2017 show bilirubin 1.2, AST of 100 and elevated ammonia level. Plan Diet n.p.o. for now Review previous labs for October 2017, liver workup? Consent for EGD with possible banding Continue octreotide and Protonix drip for now Continue IV fluids Anti-emetics Further recommendations to follow after patient has had procedure today Patient was seen per myself and Dr. Lanier, note was written on his behalf <Pavithra Tran - Last Filed: 03/24/18 15:36>
[2018-03-24] MEDS ORDERED: Lidocaine PF 1% Inj 5 ML Syringe INFILTRATN ONE (12:00)
[2018-03-24] MEDS ORDERED: Succinylcholine Inj 100 MG/5 ML Syringe IV.PUSH ONE (12:00)
[2018-03-24] MEDS ORDERED: Metoprolol Tartrate 25 MG Tablet PO SCH (14:30)
[2018-03-24] MEDS ORDERED: Chlorhexidine Gluconate 2% 1 Pack (2 Cloths) TOPICAL SCH (14:30)
[2018-03-24] MEDS ORDERED: Sodium Chlor 0.9% Inj 500 ML IV.SIG SCH (15:00)
--- NOTE | 2018-03-24 16:14 | P.PCN ---
Date of procedure: 03/24/18 Pre-op diagnosis: Hematemesis, GI bleed, anemia Procedure: PROCEDURE PERFORMED EGD with biopsies INDICATION FOR PROCEDURE Hematemesis, anemia PROCEDURE: The procedure, risks and benefits were discussed with Patient/POA and informed consent was obtained. Anesthesia sedated Patient with Diprivan. Patient was placed in the left lateral decubitus position. EGD: The Pentax videoscope was introduced through the oropharynx and advanced to the second portion of the duodenum under direct visualization. Retroflexion was performed in the stomach. FINDINGS: The esophagus this appeared to be unremarkable and within normal limits The stomach there was a small hiatal hernia the gastric mucosa appeared to be diffusely edematous and erythemic possibly representing portal gastropathy no gastric varices were seen but there were 3 antral ulcers one fairly large somewhat shallow clean based and 2 smaller ones that were clean based biopsies were taken for further evaluation as well as biopsies from the gastric body for further evaluation The duodenum this was normal ESTIMATED BLOOD LOSS: None SPECIMENS REMOVED: Gastric biopsies COMPLICATIONS: None IMPRESSION: Small hiatal hernia Samuel gastritis Antral ulcers PLAN: Await biopsies Avoid NSAIDs and aspirin Protonix 40 mg p.o. twice daily Start Carafate 1 g 4 times daily EGD in 2 months Stop alcohol Monitor labs Advance diet Anesthesia: GETA Surgeon: Clarence Lanier Condition: stable Disposition: floor
[2018-03-24] MEDS ORDERED: fentaNYL Citrate Inj 100 MCG/2 ML Ampul ONE (16:17)
[2018-03-24 17:25] LABS: Hematocrit 30.9 % (39.0-51.0); Hemoglobin 9.9 gm/dL (13.0-17.0)
[2018-03-24] MEDS: Sucralfate 1 GM Tablet PO SCH ×2 (17:25→23:20)
[2018-03-24] MEDS ORDERED: Hydrocortisone Acetate 25 MG Supp RECTAL SCH (18:00)
--- NOTE | 2018-03-24 21:44 | ECG ---
Date Performed: 03/23/2018 Time Performed: 22:05:30 PTAGE: 58 years EKG: Sinus rhythm BORDERLINE LEFT AXIS DEVIATION BORDERLINE ECG PREVIOUS TRACING : 03/23/2018 19.08 Compared to previous tracing, rate has decreased DOCTOR: Manuel Hudson Interpretating Date/Time 03/24/2018 21:43:09
[2018-03-25] MEDS: Sod Chloride 0.9% Inj 1,000 ML IV.CONT SCH ×2 (00:44→05:50)
[2018-03-25] MEDS: Sucralfate 1 GM Tablet PO SCH ×4 (08:26→21:05)
--- NOTE | 2018-03-25 08:33 | P.PNIM ---
Subjective Interval history: Pt reports that he did eat small amount of food last night. No further vomiting No BM since prior to admission +Flatus Physical Exam Vital signs: Vital Signs 03/24/18 11:59 03/24/18 16:11 03/24/18 16:15 Temperature 98.0 F 98.7 F Pulse Rate 78 97 H 94 H Respiratory Rate 16 29 H 20 Blood Pressure 154/89 H 159/89 H 145/89 H Pulse Oximetry 94 L 95 95 03/24/18 16:30 03/24/18 16:36 03/24/18 16:42 Temperature 98.6 F Pulse Rate 93 H 90 Respiratory Rate 17 19 Blood Pressure 143/87 H 140/84 Pulse Oximetry 96 96 94 L 03/24/18 17:21 03/24/18 20:00 03/25/18 04:00 Temperature 98.1 F 98.3 F 98.1 F Pulse Rate 85 87 74 Respiratory Rate 16 16 22 Blood Pressure 132/81 137/79 152/80 H Pulse Oximetry 92 L 97 97 Intake & Output 03/24/18 03/25/18 03/25/18 18:59 06:59 18:59 Intake Total 1800 / 1800 1600.5 / 1600.5 100 / 100 Output Total 650 / 650 1800 / 1800 Balance 1800 / 1800 950.5 / 950.5 -1700 / -1700 Weight 73.5 kg 74 kg Intake: IV 1600 / 1600 1600.5 / 1600.5 SandoSTATIN Inj 500 MCG In NS 500 / 500 Inj 500 ML @ 50 MCG/HR 50.05 mls/hr IV.CONT .Q10H YORDAN Rx#: [id number] Protonix Inj 80 MG In NS Inj 100 / 100 100 ML @ 10 mls/hr IV.CONT CONT YORDAN Rx#:[id number] NS Inj 1,000 ML @ 100 mls/hr IV 1000 / 1000 1000 / 1000 .CONT .Q10H YORDAN Rx#:[id number] Oral 100 / 100 Anesthesia Amount 200 / 200 Output: Urine 650 / 650 1800 / 1800 Other: Weight On Admission 175.26 kg Narrative: GENERAL: NAD, Awake and alert CARDIO: Regular RESP: Breath sounds equal bilaterally. No accessory muscle use. ABD: +BS, soft, mild right sided tenderness, mildly distended. EXT: No cyanosis, or edema. Results - Labs CBC & Chem 7: 03/25/18 14:10 03/25/18 08:58 Laboratory Results - last 24 hr 03/24/18 03/24/18 03/24/18 08:15 08:15 08:15 WBC 7.5 RBC 3.49 L Hgb 9.6 L Hct 29.5 L MCV 84.7 MCH 27.5 MCHC 32.5 RDW 17.1 Plt Count 93 L MPV 8.4 Prelim Diff (Auto) Slide review pending Neut % (Auto) 53.6 Lymph % (Auto) 34.9 Hopkins % (Auto) 9.6 H Eos % (Auto) 1.0 Baso % (Auto) 0.9 Neut # (Auto) 4.0 Lymph # (Auto) 2.6 Hopkins # (Auto) 0.7 Eos # (Auto) 0.1 Baso # (Auto) 0.1 WBC Differential . Diff Scan Auto diff confirmed Differential Comment . Platelet Estimate Low L Platelet Morphology Normal Sodium 142 Potassium 4.4 Chloride 110 H Carbon Dioxide 22.1 Anion Gap 10 BUN 34 H Creatinine 1.21 Estimated GFR 61 L Random Glucose 108 H Calcium 7.3 L* Prot Corrected Calcium 7.3 L* Total Bilirubin 1.3 H AST 86 H ALT 57 Alkaline Phosphatase 93 Ammonia 84 H Total Protein 7.3 D Albumin 2.4 L 03/24/18 17:10 WBC RBC Hgb 9.9 L Hct 30.9 L MCV MCH MCHC RDW Plt Count MPV Prelim Diff (Auto) Neut % (Auto) Lymph % (Auto) Hopkins % (Auto) Eos % (Auto) Baso % (Auto) Neut # (Auto) Lymph # (Auto) Hopkins # (Auto) Eos # (Auto) Baso # (Auto) WBC Differential Diff Scan Differential Comment Platelet Estimate Platelet Morphology Sodium Potassium Chloride Carbon Dioxide Anion Gap BUN Creatinine Estimated GFR Random Glucose Calcium Prot Corrected Calcium Total Bilirubin AST ALT Alkaline Phosphatase Ammonia Total Protein Albumin - Imaging Chest X-Ray 03/23/18 19:10 CONCLUSION: Mildly displaced fracture of the posterior lateral left seventh rib, acute. Mild atelectasis left lung base. No evidence of pneumothorax. Abdomen/Pelvis CT 03/23/18 19:51 CONCLUSION: 1. No acute findings. 2. Stable hepatomegaly and mild steatosis. Assessment and Plan - Assessment (1) Acute GI bleeding Code(s): K92.2 - Gastrointestinal hemorrhage, unspecified Status: Acute Plan: Acute GIB Gastric ulcer Portal Gastropathy - Pt is a 58 y/o WM with history of alcohol abuse, GIB and duodenal ulcer. - Pt presented to the ED at [facility] on 03/23/18 with complaints of vomiting bright red blood and having dark tarry stools that began 3 days ago. He has hx of GIB in 10/2017 and underwent evaluation with EGD on 10/08/17 which revealed Caitlin- Ronquillo tear, gastritis, and large non-bleeding ulcer in the duodenal bulb. Pt has continued to drink alcohol, approximately 4 beers per day. He reports that prior to being admitted in October 2017 he had been taking a lot of NSAIDs but since that time he rarely will use any anti-inflammatories. He denies take any aspirin or anticoagulants. - His labs at admission noted Hgb 11.2/Hct 34.9 which decreased to Hgb 10.6/Hct 32.7 last night. - Pt started on Protonix and Octreotide gtt, no further vomiting - GI was consulted - pt underwent evaluation with EGD on 03/24/18 --> small hiatal hernia, portal gastropathy no gastric varices were seen but there were 3 antral ulcers one fairly large somewhat shallow clean based and 2 smaller ones that were clean based - Protonix was changed to 40mg po BID and Octreotide was stopped following the procedure. - Carafate 1gm TID was added to his regimen. - Awaiting repeat labs this morning. - Supportive care Alcohol abuse - CIWA protocol is ordered - Discussed alcohol cessation. Discussed the case with [facility] this morning and pt has been enrolled in [facility] and with [facility] to help with the alcohol abuse and cessation. - Ammonia level was elevated and repeat is ordered for this morning. - Add on Lactulose 30mL BID Abdominal pain - Pain is mostly in the RLQ, has been present for several months. - CT Abd/pelvis (03/23/18) --> No acute findings. Stable hepatomegaly and mild steatosis. - Pt has not been evaluated by colonoscopy previously. This should be done as an outpt. - DVT prophylaxis with SCDs The exam, history, and the medical decision-making described in the above note were completed with the assistance of the mid-level provider. I reviewed and agree with the findings presented. I attest that I had a [id number] encounter with the patient on the same day, and personally performed and documented my assessment and findings in the medical record. gastric ulcers. stable h/h. ppi. f/u gi. etoh/nsaid cessation. arranged fhcp f/ u for counseling and complex CM. ambulate and check stability today. lactulose added. no significant w/d sx's at this time. dc in AM. (2) Alcohol abuse Code(s): F10.10 - Alcohol abuse, uncomplicated Status: Acute (3) Abdominal pain Code(s): R10.9 - Unspecified abdominal pain Status: Acute
[2018-03-25] MEDS ORDERED: Polyethylene Glycol 3350 17 GM Packet PO SCH (09:00)
[2018-03-25 11:16] LABS: Alanine Aminotransferase 90 U/L (12-78); Albumin 2.6 g/dL (3.4-5.0); Anion Gap 7 meq/L (5-15); Aspartate Aminotransferase 159 U/L (15-37); Blood Urea Nitrogen 21 mg/dL (7-18); Calcium 7.9 mg/dL (8.5-10.1); Carbon Dioxide 27.2 meq/L (21.0-32.0); Chloride 102 meq/L (98-107); Glomerular Filtration Rate 61 mL/min (>89); Glucose,Random 123 mg/dL (74-106); Potassium 3.9 meq/L (3.5-5.1); Sodium 136 meq/L (136-145)
[2018-03-25 11:18] LABS: Alkaline Phosphatase 95 U/L (45-117)
[2018-03-25 14:35] LABS: Baso # (Auto) 0.1 th/mm3 (0.0-0.2); Baso % (Auto) 0.8 % (0.0-2.0); Eos # (Auto) 0.1 th/mm3 (0.0-0.4); Eos % (Auto) 1.3 % (0.0-4.0); Hematocrit 32.2 % (39.0-51.0); Hemoglobin 10.4 gm/dL (13.0-17.0); Lymph # (Auto) 1.8 th/mm3 (1.0-4.8); Lymph % (Auto) 26.2 % (9.0-44.0); Mean Corpuscular HGB Conc 32.2 % (32.0-36.0); Mean Corpuscular Hemoglobin 27.8 pg (27.0-34.0); Mean Corpuscular Volume 86.1 fL (80.0-100.0); Mean Platelet Volume 7.9 fL (7.0-11.0); Mono # (Auto) 0.8 th/mm3 (0.0-0.9); Neut % (Auto) 59.7 % (16.0-70.0); Platelet Count 101 th/mm3 (150-450); Red Blood Count 3.74 mil/mm3 (4.50-5.90); Red Cell Distribution Width 16.8 % (11.6-17.2); White Blood Count 6.8 th/mm3 (4.0-11.0)
--- NOTE | 2018-03-26 08:20 | P.PNIM ---
Subjective Interval history: Pt is overall feeling better today He had a dark BM yesterday NO vomiting Tolerating oral intake Physical Exam Vital signs: Vital Signs 03/25/18 12:00 03/25/18 16:00 03/25/18 19:57 Temperature 98.2 F 98.8 F Pulse Rate 83 83 Respiratory Rate 16 16 Blood Pressure 150/88 H 124/83 Pulse Oximetry 95 96 99 03/25/18 20:00 Temperature 98.4 F Pulse Rate 77 Respiratory Rate 22 Blood Pressure 147/98 H Pulse Oximetry 97 Intake & Output 03/25/18 03/26/18 03/26/18 18:59 06:59 18:59 Intake Total 100 / 100 Output Total 1800 / 1800 1000 / 1000 Balance -1700 / -1700 -1000 / -1000 Intake: Oral 100 / 100 Output: Urine 1800 / 1800 1000 / 1000 Other: Date of Last Bowel Movement 03/23/18 Narrative: GENERAL: NAD, Awake and alert CARDIO: Regular RESP: Breath sounds equal bilaterally. No accessory muscle use. ABD: +BS, soft, minimal right sided tenderness, mildly distended. EXT: No cyanosis, or edema. Results - Labs CBC & Chem 7: 03/25/18 14:10 03/25/18 08:58 Laboratory Results - last 24 hr 03/25/18 03/25/18 03/25/18 08:58 08:58 14:10 WBC 6.8 RBC 3.74 L Hgb 10.4 L Hct 32.2 L MCV 86.1 MCH 27.8 MCHC 32.2 RDW 16.8 Plt Count 101 L MPV 7.9 Neut % (Auto) 59.7 Lymph % (Auto) 26.2 Early % (Auto) 12.0 H Eos % (Auto) 1.3 Baso % (Auto) 0.8 Neut # (Auto) 4.0 Lymph # (Auto) 1.8 Early # (Auto) 0.8 Eos # (Auto) 0.1 Baso # (Auto) 0.1 WBC Differential . Differential Comment Auto diff final Sodium 136 Potassium 3.9 Chloride 102 D Carbon Dioxide 27.2 Anion Gap 7 BUN 21 H Creatinine 1.21 Estimated GFR 61 L Random Glucose 123 H Calcium 7.9 L Total Bilirubin 1.0 AST 159 H ALT 90 H Alkaline Phosphatase 95 Ammonia 76 H Total Protein 8.0 D Albumin 2.6 L - Imaging Chest X-Ray 03/23/18 19:10 CONCLUSION: Mildly displaced fracture of the posterior lateral left seventh rib, acute. Mild atelectasis left lung base. No evidence of pneumothorax. Abdomen/Pelvis CT 03/23/18 19:51 CONCLUSION: 1. No acute findings. 2. Stable hepatomegaly and mild steatosis. Assessment and Plan - Assessment (1) Acute GI bleeding Code(s): K92.2 - Gastrointestinal hemorrhage, unspecified Status: Acute Plan: Acute GIB Gastric ulcer Portal Gastropathy - Pt is a 58 y/o WM with history of alcohol abuse, GIB and duodenal ulcer. - Pt presented to the ED at [facility] [place] on 03/23/18 with complaints of vomiting bright red blood and having dark tarry stools that began 3 days ago. He has hx of GIB in 10/2017 and underwent evaluation with EGD on 10/08/17 which revealed Caitlin- Ronquillo tear, gastritis, and large non-bleeding ulcer in the duodenal bulb. Pt has continued to drink alcohol, approximately 4 beers per day. He reports that prior to being admitted in October 2017 he had been taking a lot of NSAIDs but since that time he rarely will use any anti-inflammatories. He denies take any aspirin or anticoagulants. - His labs at admission noted Hgb 11.2/Hct 34.9 which decreased to Hgb 10.6/Hct 32.7 last night. - Pt started on Protonix and Octreotide gtt, no further vomiting - GI was consulted - pt underwent evaluation with EGD on 03/24/18 --> small hiatal hernia, portal gastropathy no gastric varices were seen but there were 3 antral ulcers one fairly large somewhat shallow clean based and 2 smaller ones that were clean based - Protonix was changed to 40mg po BID and Octreotide was stopped following the procedure. - Cont. Protonix 40mg BID and Carafate 1gm TID upon discharge. - Pts H/H has remained stable. - Anticiapte d/c today. - He will need to followup with GI in 2 weeks and recommended to have a repeat EGD in 2 months. - [facility] Complex Case management will be contacting the pt to get him set up with a PCP. Alcohol abuse - [facility] protocol is ordered - Discussed alcohol cessation. Discussed the case with [facility] CM this morning and pt has been enrolled in Complex CM and with [facility] Behavioral health to help with the alcohol abuse and cessation. - Ammonia level was elevated and will continue the pt on Lactulose 30mL daily upon discharge. Abdominal pain - Pain is mostly in the RLQ, has been present for several months. - CT Abd/pelvis (03/23/18) --> No acute findings. Stable hepatomegaly and mild steatosis. - Pt has not been evaluated by colonoscopy previously. This should be done as an outpt. - DVT prophylaxis with SCDs (2) Alcohol abuse Code(s): F10.10 - Alcohol abuse, uncomplicated Status: Acute (3) Abdominal pain Code(s): R10.9 - Unspecified abdominal pain Status: Acute
[2018-03-26] MEDS: Sucralfate 1 GM Tablet PO SCH ×2 (08:48→13:12)
--- NOTE | 2018-03-26 08:52 | P.PNGI ---
Subjective Interval history: Patient denies any nausea or vomiting Right lower quadrant abdominal pain improved and appears to be resolving. Current hemoglobin 10.4 on 03/25/2018 No obvious bleeding <Pavithra Tran - Last Filed: 03/26/18 15:41> Physical Exam Vital signs: Vital Signs 03/25/18 12:00 03/25/18 16:00 03/25/18 19:57 Temperature 98.2 F 98.8 F Pulse Rate 83 83 Respiratory Rate 16 16 Blood Pressure 150/88 H 124/83 Pulse Oximetry 95 96 99 03/25/18 20:00 Temperature 98.4 F Pulse Rate 77 Respiratory Rate 22 Blood Pressure 147/98 H Pulse Oximetry 97 Intake & Output 03/25/18 03/26/18 03/26/18 18:59 06:59 18:59 Intake Total 100 / 100 Output Total 1800 / 1800 1000 / 1000 Balance -1700 / -1700 -1000 / -1000 Intake: Oral 100 / 100 Output: Urine 1800 / 1800 1000 / 1000 Other: Date of Last Bowel Movement 03/23/18 - Constitutional no acute distress - Routine HEENT Exam Head: Present: normocephalic ENT: Present: mucous membranes moist - Routine Neck Exam Present: supple - Routine Respiratory Exam Present: accessory muscle use (Even, unlabored) - Routine Cardiovascular Exam Present: S1, S2 - Routine Abdominal Exam Present: soft (Round, no abdominal pain, abdomen soft, right lower quadrant discomfort resolving) - Routine Skin Exam Present: intact - Routine Neurological Exam Present: alert <Pavithra Tran - Last Filed: 03/26/18 15:41> Results - Labs CBC & Chem 7: 03/25/18 14:10 03/25/18 08:58 Laboratory Results - last 24 hr 03/25/18 03/25/18 03/25/18 08:58 08:58 14:10 WBC 6.8 RBC 3.74 L Hgb 10.4 L Hct 32.2 L MCV 86.1 MCH 27.8 MCHC 32.2 RDW 16.8 Plt Count 101 L MPV 7.9 Neut % (Auto) 59.7 Lymph % (Auto) 26.2 Kern % (Auto) 12.0 H Eos % (Auto) 1.3 Baso % (Auto) 0.8 Neut # (Auto) 4.0 Lymph # (Auto) 1.8 Kern # (Auto) 0.8 Eos # (Auto) 0.1 Baso # (Auto) 0.1 WBC Differential . Differential Comment Auto diff final Sodium 136 Potassium 3.9 Chloride 102 D Carbon Dioxide 27.2 Anion Gap 7 BUN 21 H Creatinine 1.21 Estimated GFR 61 L Random Glucose 123 H Calcium 7.9 L Total Bilirubin 1.0 AST 159 H ALT 90 H Alkaline Phosphatase 95 Ammonia 76 H Total Protein 8.0 D Albumin 2.6 L <Pavithra Tran - Last Filed: 03/26/18 15:41> - Labs CBC & Chem 7: 03/25/18 14:10 03/25/18 08:58 <Clarence Lanier - Last Filed: 03/27/18 12:24> Assessment and Plan (1) Hematemesis Status: Acute Code(s): K92.0 - Hematemesis (2) Acute GI bleeding Status: Acute Code(s): K92.2 - Gastrointestinal hemorrhage, unspecified (3) Alcohol abuse Status: Acute Code(s): F10.10 - Alcohol abuse, uncomplicated (4) Abdominal pain Status: Acute Code(s): R10.9 - Unspecified abdominal pain (5) Transaminitis Status: Acute Code(s): R74.0 - Nonspecific elevation of levels of transaminase and lactic acid dehydrogenase [LDH] (6) Elevated bilirubin Status: Acute Code(s): R17 - Unspecified jaundice - Plan Elevated bilirubin and transaminitis, probably secondary to his alcohol abuse/ alcoholic hepatitis. Current labs show ammonia level 56, PT/INR 1.4, hemoglobin currently 11.6. CT scan shows stable hepatic ptosis and mild steatosis. Will recheck labs for previous liver workup back in October. Nausea and vomiting symptoms right upper quadrant abdominal pain and epigastric abdominal pain, all secondary to his possible esophageal varices and upper GI bleeding. Patient's currently being managed on IV Protonix and octreotide drip as well as IV fluids. Melena stools secondary to upper GI bleeding probable History of Caitlin-Ronquillo tear, EGD that was done back in October [address] Hill. Also has history of gastritis and large nonbleeding ulcer in the duodenal bulb. Hematemesis could be from this previous large ulcer in the duodenal bulb Liver labs back from October 2017 show bilirubin 1.2, AST of 100 and elevated ammonia level. 03/26/2018 patient is resting in the bed right lower quadrant discomfort resolving patient denies any obvious nausea or vomiting EGD done on 03/25/2018 shows hiatal hernia, zuluaga gastritis, antral ulcers. Encourage for alcohol abstinence. Patient is sitting up in the bed states right lower quadrant discomfort improved. Tolerating regular food no nausea no vomiting. If continues to be stable with GI symptoms can follow-up as outpatient in the GI office 2-4 weeks, will need EGD in 2 months and reevaluate PLAN Diet as tolerated Monitor lab Await biopsies, EGD Avoid NSAIDs /aspirin Protonix 40 mg p.o. twice daily Carafate gram1 4 times a day EGD in 2 months Supportive care Patient was seen per myself and Dr. Lanier, note was written on his behalf <Pavithra Tran - Last Filed: 03/26/18 15:41> (1) Hematemesis Status: Acute Code(s): K92.0 - Hematemesis (2) Acute GI bleeding Status: Acute Code(s): K92.2 - Gastrointestinal hemorrhage, unspecified (3) Alcohol abuse Status: Acute Code(s): F10.10 - Alcohol abuse, uncomplicated (4) Abdominal pain Status: Acute Code(s): R10.9 - Unspecified abdominal pain (5) Transaminitis Status: Acute Code(s): R74.0 - Nonspecific elevation of levels of transaminase and lactic acid dehydrogenase [LDH] (6) Elevated bilirubin Status: Acute Code(s): R17 - Unspecified jaundice - Attending Attestation Patient seen and examined Agree with above Continue with current supportive care Monitor labs Patient follow-up with GI post discharge Not much to add from a GI perspective at this point we will sign off <Clarence Lanier - Last Filed: 03/27/18 12:24>
--- NOTE | 2018-03-31 13:39 | P.DS ---
Date of admission: 03/23/18 22:22 Primary care physician: No Primary Care Physician Anticipated date of discharge: 03/29/18 Brief History from admission: Mr. Earl is a 58 y/o WM with history of alcohol abuse, GIB and duodenal ulcer. Pt presented to the ED at [facility] [place] on 03/23/18 with complaints of vomiting bright red blood and having dark tarry stools for 3 days. He was evaluated at [facility] [place] in 10/2017 with a GIB. He underwent evaluation with EGD on 10/08/17 which revealed Caitlin-Ronquillo tear, gastritis, and large non-bleeding ulcer in the duodenal bulb. Pt has continued to drink alcohol, approximately 4 beers per day. According to ED documentation, when the EMS arrives the pt was hypotensive with systolic blood pressure of 66 on scene and he had a syncopal episode. Pt was given Zofran 4 mg IV and normal saline 500 mL bolus. Upon arrival to the ED his BP had improved and has remained stable. He reports that prior to being admitted in October 2017 he had been taking a lot of NSAIDs but since that time he rarely will use any anti-inflammatories. He denies take any aspirin or anticoagulants. Pt reports that he was taking the NSAIDs for chronic abdominal pain which has been going on since earlier this year. It is mostly RLQ abdominal pain which waxes and wanes in intensity. He cannot provide any palliative or provocative measures regarding the abdominal pain. His labs at admission noted Hgb 11.2/Hct 34.9 which decreased to Hgb 10.6/Hct 32.7 last night. Repeat labs for this morning are pending. Past Medical Hx: Alcohol abuse Duodenal ulcer Past Surgical Hx: EGD (10/08/17) --> Caitlin-Ronquillo tear, gastritis, large non-bleeding ulcer in the duodenal bulb Family Hx: Both parents with both diabetes mellitus and coronary artery disease Social Hx: (+)Tobacco use, one pack per day. (+)Alcohol use, drinks approximately 4 - 16 ounce cans of beer daily. Denies illicit drugs. DS: Diagnosis - Discharge Diagnosis (1) Acute GI bleeding Status: Acute (2) Alcohol abuse Status: Acute (3) Abdominal pain Status: Acute DS: Medications - Discharge Medications Prescriptions: lactulose 30 ml PO DAILY 30 Days #900 ml lorazepam [Ativan] 0.5 mg PO DIRECTED #4 tab pantoprazole 40 mg PO BID 30 Days #60 tab sucralfate 1 gm PO ACHS 14 Days tab DS: Summary Hospital Course: - Assessment (1) Acute GI bleeding Code(s): K92.2 - Gastrointestinal hemorrhage, unspecified Status: Acute Plan: Acute GIB Gastric ulcer Portal Gastropathy - Pt is a 58 y/o WM with history of alcohol abuse, GIB and duodenal ulcer. - Pt presented to the ED at [facility] [place] on 03/23/18 with complaints of vomiting bright red blood and having dark tarry stools that began 3 days ago. He has hx of GIB in 10/2017 and underwent evaluation with EGD on 10/08/17 which revealed Caitlin- Ronquillo tear, gastritis, and large non-bleeding ulcer in the duodenal bulb. Pt has continued to drink alcohol, approximately 4 beers per day. He reports that prior to being admitted in October 2017 he had been taking a lot of NSAIDs but since that time he rarely will use any anti-inflammatories. He denies take any aspirin or anticoagulants. - His labs at admission noted Hgb 11.2/Hct 34.9 which decreased to Hgb 10.6/Hct 32.7 last night. - Pt started on Protonix and Octreotide gtt, no further vomiting - GI was consulted - pt underwent evaluation with EGD on 03/24/18 --> small hiatal hernia, portal gastropathy no gastric varices were seen but there were 3 antral ulcers one fairly large somewhat shallow clean based and 2 smaller ones that were clean based - Protonix was changed to 40mg po BID and Octreotide was stopped following the procedure. - Cont. Protonix 40mg BID and Carafate 1gm TID upon discharge. - Pts H/H has remained stable. - Anticiapte d/c today. - He will need to followup with GI in 2 weeks and recommended to have a repeat EGD in 2 months. - [facility] Complex Case management will be contacting the pt to get him set up with a PCP. Alcohol abuse - CIWA protocol is ordered - Discussed alcohol cessation. Discussed the case with [facility] CM this morning and pt has been enrolled in Complex CM and with [facility] Behavioral health to help with the alcohol abuse and cessation. - Ammonia level was elevated and will continue the pt on Lactulose 30mL daily upon discharge. Abdominal pain - Pain is mostly in the RLQ, has been present for several months. - CT Abd/pelvis (03/23/18) --> No acute findings. Stable hepatomegaly and mild steatosis. - Pt has not been evaluated by colonoscopy previously. This should be done as an outpt. - DVT prophylaxis with SCDs (2) Alcohol abuse Code(s): F10.10 - Alcohol abuse, uncomplicated Status: Acute (3) Abdominal pain Code(s): R10.9 - Unspecified abdominal pain Status: Acute - Time Spent with Patient Total time spent providing and/or coordinating discharge services: Greater than 30 minutes - Quality: VTE Deep Vein Thrombosis/Pulmonary Embolism Present on Admission: No Exam Vital signs: heart reg lung cta abd /snt ext no edema Results Procedures completed during hospitalization: egd Completed studies during hospitalization: Pending at discharge 03/24/18 07:40 Surgical [PTH] Routine - Impressions ITS Impressions Chest X-Ray 03/23/18 19:10 CONCLUSION: Mildly displaced fracture of the posterior lateral left seventh rib, acute. Mild atelectasis left lung base. No evidence of pneumothorax. Abdomen/Pelvis CT 03/23/18 19:51 CONCLUSION: 1. No acute findings. 2. Stable hepatomegaly and mild steatosis. Discharge Plan - Discharge Disposition Patient Disposition: Discharge Home - Discharge Condition Condition: Stable - Discharge Order Discharge Orders: Discharge Order (Routine); Ordered 03/26/18 Ordered By: Odalys Caballero - Discharge Details Anticipated Discharge Date: 03/25/18 Discharge Comment: Patient is to followup with Dr. Lanier's office ([facility]), call for that followup appt. He will need a repeat EGD in 2 months and a colonoscopy. - Physicians Team Primary Care Provider: Primary Care Gabe,Kelly Attending Provider: Cuong Frey Other Providers: Clarence Lanier MD
== END 2018-03-26 17:37 | disposition home or self-care (01) ==
LOC: NEPE 18:54 → INTOOBSV 22:16 → NEDA 22:16 → NEPGCP 23:36
PROVIDERS: ADMIT Hospitalist; ATTEND Hospitalist
PROC: PANENDO (2018-03-24 15:41)
DX: K29.70 Gastritis, unspecified, without bleeding; G89.29 Other chronic pain; Z87.19 Personal history of other diseases of the digestive system; D64.9 Anemia, unspecified; R10.9 Unspecified abdominal pain; F10.20 Alcohol dependence, uncomplicated; K44.9 Diaphragmatic hernia without obstruction or gangrene; Z83.3 Family history of diabetes mellitus; J98.11 Atelectasis; Z82.49 Family history of ischemic heart disease and other diseases of the circulatory system; K31.89 Other diseases of stomach and duodenum; F17.210 Nicotine dependence, cigarettes, uncomplicated; K70.10 Alcoholic hepatitis without ascites; Z87.11 Personal history of peptic ulcer disease; K25.9 Gastric ulcer, unspecified as acute or chronic, without hemorrhage or perforation